=== PATIENT | female | born 1935 | race Caucasian/White ===

== ENCOUNTER 2017-02-07 23:14 | Observation (INO) ==
[2017-02-07] MEDS ORDERED: Lidocaine 1% 20 ML MDV INFILT ONE (23:45)
--- NOTE | 2017-02-07 23:56 | Emergency Department Note ---
Disposition Clinical Impression: TIA (transient ischemic attack) Qualifiers: Transient cerebral ischemia type: unspecified Qualified Code(s): G45.9 - Transient cerebral ischemic attack, unspecified Fall Qualifiers: Encounter type: initial encounter Qualified Code(s): W19.XXXA - Unspecified fall, initial encounter Scalp laceration Qualifiers: Encounter type: initial encounter Qualified Code(s): S01.01XA - Laceration without foreign body of scalp, initial encounter Disposition: Admitted As Inpatient Condition: Fair Time of Disposition: 01:39 General Adult HPI - General Chief complaint: ED Fall Stated complaint: fall, lac to back of head Time Seen by Provider: 02/07/17 23:18 Source: patient, EMS Mode of arrival: EMS Limitations: no limitations Nursing Notes Reviewed: Yes Vital Signs Reviewed: Yes - History of Present Illness HPI Narrative: 81-year-old female presenting to the emergency department with chief complaint of fall and head laceration. Patient states she is not remove her falling. She was down for approximately 2 hours before family came home and found her on the ground lots of bloody napkins around her. Patient does not remember the fall. She does not know what she hit her head on. Patient states she has fallen multiple times in the past year. She states approximately 20 different times. She does not remember any of these episodes she just signed herself on the floor. Patient does have a history of stroke and TIA. According to family during these episodes the patient's left lower extremity becomes extremely weak and she cannot bear weight on it. Patient is back at baseline at this time. Patient has a approximately 5 cm laceration to the posterior scalp. Patient denies any chest pain, dizziness or abdominal pain or nausea. Pain Scale: 0 - Related Data Home Medications Medication Instructions Recorded Confirmed Ergocalciferol (VITAMIN D2) 50,000 unit PO WE 11/21/15 11/21/15 [Vitamin D2 (50,000 UNIT)] Ezetimibe [Zetia] 10 mg PO DAILY 11/21/15 11/21/15 Losartan Potassium [Cozaar] 50 mg PO DAILY 11/21/15 11/21/15 Sertraline [Zoloft] 100 mg PO DAILY 11/21/15 11/21/15 Previous Rx's Medication Instructions Recorded Clopidogrel Bisulfate [Plavix] 75 mg PO DAILY #30 tablet 11/23/15 Sulfamethoxazole/Trimeth DS 1 each PO BID #20 tablet 11/23/15 [Bactrim DS] Allergies Allergy/AdvReac Type Severity Reaction Status Date / Time tetanus and diphtheria Allergy Hives Verified 11/21/15 15:35 toxoids [Tetanus&Diphtheria Toxoid] All systems ED: reviewed and negative except as stated. Constitutional: Denies: fever, chills Eyes: Reports: as per HPI ENT ED: Reports: as per HPI Cardiovascular: Denies: chest pain, palpitations Respiratory: Denies: cough, dyspnea, wheezes Gastrointestinal: Denies: abdominal pain, nausea, vomiting Genitourinary: Reports: as per HPI Musculoskeletal: Reports: as per HPI Integumentary: Reports: abrasion. Denies: rash Neurological: Denies: headache, weakness, numbness Psychiatric: Reports: as per HPI Endocrine: Reports: as per HPI Hematological/Lymphatic: Reports: as per HPI Allergic/Immunologic: Reports: as per HPI Past Medical History - Past Medical History Attestation: Yes The following information was validated with the patient. Medical history: Reports: arthritis, hyperlipidemia, hypertension, osteoporosis , TIA Surgical history: Reports: other Psychiatric history: Reports: anxiety, depression - Social History Smoking Status: Never smoker Smokeless Tobacco Status: No Alcohol use: Reports: none Drug use: Reports: none Physical Exam - General Limitations: no limitations General appearance: alert, in no apparent distress - Head Head exam: normocephalic, other (5 cm laceration noted on the posterior occiput area no active bleeding at this time) - Eye Eye exam: Present: normal appearance, PERRL, EOMI. Absent: scleral icterus, conjunctival injection - ENT ENT exam: normal exam, normal oropharynx - Neck Neck exam: Present: normal inspection, full ROM. Absent: tenderness, meningismus - Chest Chest inspection: Present: normal inspection, symmetric chest wall rise. Absent : tenderness, rash - Respiratory Respiratory exam: Present: normal lung sounds bilaterally. Absent: respiratory distress, wheezes - Cardiovascular Cardiovascular exam: Present: regular rate, normal rhythm, normal heart sounds - Abdominal Exam Abdominal exam: Present: soft, Non-Tender. Absent: distention, guarding, rebound - Extremities Exam Extremities exam: Present: normal inspection, full ROM - Neurological Exam Neurological exam: Present: alert, oriented X3, CN II-XII intact. Absent: motor sensory deficit - Psychiatric Psychiatric exam: Present: normal affect, normal mood - Skin Skin exam: Present: warm, intact Course Course Narrative: 81-year-old female with chief complaint of fall. Patient unsure if she lost consciousness. She has a 5 cm laceration on the occipital part of her scalp. No active bleeding at this time. We will perform a CT of the head and neck along with laceration repair. We will also perform laboratory analysis including CBC, BMP, urinalysis, EKG and troponin. Patient's disposition was likely will be admission. She is alert and oriented 3 in the room with stable vital signs. She agrees with this plan. Family members at bedside. - Reevaluation(s) Reevaluation #1: All patient's lab work and radiographs and imaging have come back within normal limits. Concern for TIA versus syncope at this time. We will admit the patient for further workup. Patient is alert and oriented 3 and remained stable vital signs at this time. She agrees with this plan. I spoke with the hospitalist on-call Dr. Campbell who agrees to accept the patient. Vital Signs Temperature 98.5 F 02/07/17 23:17 Pulse Rate 80 02/07/17 23:17 Respiratory Rate 18 02/07/17 23:17 Blood Pressure 153/111 02/07/17 23:17 O2 Sat by Pulse Oximetry 96 02/07/17 23:17 Temperature 98.4 F 02/08/17 02:06 Pulse Rate 76 02/08/17 01:12 Respiratory Rate 18 02/08/17 02:06 Blood Pressure 138/88 02/08/17 02:06 O2 Sat by Pulse Oximetry 97 02/08/17 01:12 Oxygen Delivery Oxygen Delivery Room Air Procedures - Laceration Laceration 1 Site: scalp Size (cm): 5 Description: linear Depth: simple, single layer Pre-repair: irrigated extensively, deep structures intact Skin layer closed with: ching Medical Decision Making - Lab Data Result diagrams: 02/08/17 00:02 02/08/17 00:02 Lab Results 02/08/17 02/08/17 02/08/17 Range/Units 00:02 00:02 00:02 WBC 12.5 H (4.3-11.1) K/mcL RBC 3.92 (3.82-4.97) M/mcL Hgb 12.9 (11.5-15.4) g/dL Hct 39.5 (35.3-44.9) % MCV 100.8 H (83.0-100.0) fL MCH 32.9 (28.0-33.3) pg MCHC 32.7 (31.6-35.5) g/dL RDW 14.1 (11.5-14.5) % Plt Count 194 (140-400) K/mcL MPV 9.4 (9.4-12.4) fL Immature Gran % 0.6 (0-4) % Seg Neutrophils % 86.3 % Lymphocytes % 7.4 % Monocytes % 4.9 % Eosinophils % 0.6 % Basophils % 0.2 % Neutrophils # 10.8 H (1.6-8.9) K/mcL Lymphocytes # 0.9 (0.6-4.6) K/mcL Monocytes # 0.6 (0.0-1.3) K/mcL Eosinophils # 0.1 (0.0-0.6) K/mcL Basophils # 0.0 (0.0-0.2) K/mcL Sodium 142 (136-145) mEq/L Potassium 3.3 L (3.5-4.5) mEq/L Chloride 108 (98-109) mEq/L Carbon Dioxide 25 (19-29) mEq/L BUN 18 (7-20) mg/dL Creatinine 1.04 (0.57-1.11) mg/dL Est GFR ( Amer) > 60 (> 60) Est GFR (Non-Af Amer) 51 L (> 60) BUN/Creatinine Ratio 17 (6-26) Glucose 169 H (70-99) mg/dL Calculated Osmolality 300 (280-300) Calcium 9.8 (8.6-10.8) mg/dL Creatine Kinase (29-168) Units/L Troponin I 0.02 (0-0.03) ng/mL Urine Color (Yellow) Urine Clarity (Clear) Urine pH (5.0-8.0) pH Units Ur Specific [place] (1.010-1.025) Urine Protein (Neg-Trace) mg/dL Urine Glucose (UA) (Normal) mg/dL Urine Ketones (Negative) mg/dL Urine Blood (Negative) Urine Nitrite (Negative) Urine Bilirubin (Negative) Urine Urobilinogen (Normal) mg/dL Ur Leukocyte Esterase (Negative) Urine Microscopic RBC (0-3) per hpf Urine Microscopic WBC (0-3) per hpf Ur Squamous Epith Cells (None-Few) per lpf Urine Bacteria (None-Few) per hpf Hyaline Casts (None-Few) per lpf 02/08/17 02/08/17 Range/Units 00:02 00:07 WBC (4.3-11.1) K/mcL RBC (3.82-4.97) M/mcL Hgb (11.5-15.4) g/dL Hct (35.3-44.9) % MCV (83.0-100.0) fL MCH (28.0-33.3) pg MCHC (31.6-35.5) g/dL RDW (11.5-14.5) % Plt Count (140-400) K/mcL MPV (9.4-12.4) fL Immature Gran % (0-4) % Seg Neutrophils % % Lymphocytes % % Monocytes % % Eosinophils % % Basophils % % Neutrophils # (1.6-8.9) K/mcL Lymphocytes # (0.6-4.6) K/mcL Monocytes # (0.0-1.3) K/mcL Eosinophils # (0.0-0.6) K/mcL Basophils # (0.0-0.2) K/mcL Sodium (136-145) mEq/L Potassium (3.5-4.5) mEq/L Chloride (98-109) mEq/L Carbon Dioxide (19-29) mEq/L BUN (7-20) mg/dL Creatinine (0.57-1.11) mg/dL Est GFR ( Amer) (> 60) Est GFR (Non-Af Amer) (> 60) BUN/Creatinine Ratio (6-26) Glucose (70-99) mg/dL Calculated Osmolality (280-300) Calcium (8.6-10.8) mg/dL Creatine Kinase 44 (29-168) Units/L Troponin I (0-0.03) ng/mL Urine Color Yellow (Yellow) Urine Clarity Cloudy A (Clear) Urine pH 6.0 (5.0-8.0) pH Units Ur Specific [place] 1.026 H (1.010-1.025) Urine Protein Negative (Neg-Trace) mg/dL Urine Glucose (UA) Normal (Normal) mg/dL Urine Ketones Negative (Negative) mg/dL Urine Blood Negative (Negative) Urine Nitrite Positive A (Negative) Urine Bilirubin Negative (Negative) Urine Urobilinogen Normal (Normal) mg/dL Ur Leukocyte Esterase Negative (Negative) Urine Microscopic RBC 3-5 H (0-3) per hpf Urine Microscopic WBC 3-5 H (0-3) per hpf Ur Squamous Epith Cells Moderate H (None-Few) per lpf Urine Bacteria Many H (None-Few) per hpf Hyaline Casts None Seen (None-Few) per lpf - EKG Data EKG #1 EKG attestation: Yes I reviewed and interpreted this EKG. EKG results narrative: Uncertain regular rhythm. Left axis deviation. 71 bpm. Left bundle branch block. QRS 143, QTc 474. Compared to previous EKG completed on 11/22/2015 no significant changes noted. No ST segment elevation or acute ischemia noted. Attestation Statement - Attestation Attestation: I examined this patient and my medical decision-making was reviewed with the Resident Physician. I agree with the documented findings, disposition and treatment plan as described except to the extent set forth below. Recurrent episodes of what sounds like TIA that leads to fall. Today had LOC, was on the floor for 1-2 hours, unclear how long she was unconscious. Neurologically normal now. Scalp lac repaired by Dr. Negron, I was present and available t/o the procedure. LBBB on EKG. Labs/CT unremarkable other than nitrite positive urine without other evidence of UTI on UA - will notify hospitalist. Agree with admission.
[2017-02-08 00:07] LABS: Basophils % 0.2 %; Eosinophils # 0.1 K/mcL (0.0-0.6); Eosinophils % 0.6 %; Hematocrit 39.5 % (35.3-44.9); Hemoglobin 12.9 g/dL (11.5-15.4); Immature Granulocytes % 0.6 % (0-4); Lymphocytes # 0.9 K/mcL (0.6-4.6); Lymphocytes % 7.4 %; Mean Corpuscular HGB Conc 32.7 g/dL (31.6-35.5); Mean Corpuscular Hemoglobin 32.9 pg (28.0-33.3); Mean Corpuscular Volume 100.8 fL (83.0-100.0); Mean Platelet Volume 9.4 fL (9.4-12.4); Monocytes # 0.6 K/mcL (0.0-1.3); Monocytes % 4.9 %; Neutrophils # 10.8 K/mcL (1.6-8.9); Platelet Count 194 K/mcL (140-400); Red Blood Count 3.92 M/mcL (3.82-4.97); Red Cell Distribution Width 14.1 % (11.5-14.5); Segmented Neutrophils % 86.3 %
[2017-02-08 00:19] LABS: Bilirubin,Urine Negative (Negative); Blood,Urine Negative (Negative); Clarity,Urine Cloudy (Clear); Color,Urine Yellow (Yellow); Glucose,Urine (UA) Normal (Normal); Ketones,Urine Negative (Negative); Leukocyte Esterase,Urine Negative (Negative); Nitrite,Urine Positive (Negative); Protein,Urine Negative (Neg-Trace); Specific Gravity,Urine 1.026 (1.010-1.025); Urobilinogen,Urine Normal (Normal)
[2017-02-08 00:19] LABS: BUN/Creatinine Ratio 17 (6-26); Blood Urea Nitrogen 18 mg/dL (7-20); Calcium 9.8 mg/dL (8.6-10.8); Carbon Dioxide 25 mEq/L (19-29); Chloride 108 mEq/L (98-109); Glucose 169 mg/dL (70-99); Osmolality,Calculated 300 (280-300); Potassium 3.3 mEq/L (3.5-4.5); Sodium 142 mEq/L (136-145); eGFR For African Americans > 60 (> 60); eGFR For Non-African Americans 51 (> 60)
[2017-02-08 00:21] LABS: Bacteria,Urine Many per hpf (None-Few); Hyaline Casts,Urine None Seen per lpf (None-Few); Squamous Epithelial Cell,Urine Moderate per lpf (None-Few)
[2017-02-08] MEDS ORDERED: *HR* Promethazine 25 MG/ML VIAL IVP PRN (01:47)
[2017-02-08] MEDS ORDERED: Naloxone 0.4 MG/ML INJ IVP PRN (01:47)
[2017-02-08] MEDS ORDERED: Ondansetron 4 MG/2 ML VIAL IVP PRN (01:47)
[2017-02-08] MEDS ORDERED: 0.9 % Sodium Chloride 1,000 ML IVC SCH (02:00)
[2017-02-08] MEDS: cefTRIAXone 1,000 MG in Water for inj. (sterile) 10 ML IVP SCH (02:17)
--- NOTE | 2017-02-08 03:30 | Internal Med History&Physical ---
Date of Encounter: 02/08/17 Time of Encounter: 03:00 Assessment and Plan (1) Syncope Current visit: Yes Status: Acute admit the pt into Tele Concerned about her multiple recurrent syncopal episodes definitely need to r/o any arrhythmias vs ACS will put her on flask maker check serial trop Reviewed EKG by myself - SR with VR 71, Left bundle branch block, No ST segment elevation / depression, no acute ischemia changes noticed Also concerned for ortho static hypotension check ortho stat vitals daily PT / OT eval IV fluids 2D Echo and Carotid doppler in AM reviewed CT of head and CT of spine - Acute maxiallary sinusitis noticed.. no acute intra cranial abnormality noticed Qualifiers: Qualified Code(s): R55 - Syncope and collapse (2) SIRS (systemic inflammatory response syndrome) Current visit: Yes Status: Acute She does meet SIRS criteria with elevated WBC, source of inf as UTI and Sinusitis started her on empirical abx Rocephin (3) Hypertension Current visit: No Status: Chronic stable with home meds Qualifiers: Hypertension type: essential hypertension Qualified Code(s): I10 - Essential (primary) hypertension (4) Urinary tract infection Current visit: No Status: Acute UA - showed Nitrite +ve, many bacteria started on empirical abx Rocephin Qualifiers: Urinary tract infection type: acute cystitis Hematuria presence: without hematuria Qualified Code(s): N30.00 - Acute cystitis without hematuria (5) Fall Current visit: Yes Status: Acute PT / OT eval Qualifiers: Encounter type: initial encounter Qualified Code(s): W19.XXXA - Unspecified fall, initial encounter (6) Scalp laceration Current visit: Yes Status: Acute Qualifiers: Encounter type: initial encounter Qualified Code(s): S01.01XA - Laceration without foreign body of scalp, initial encounter (7) Maxillary sinusitis, acute Current visit: Yes Status: Acute CT of head showed sinusitis started her on empirical abx Qualifiers: Qualified Code(s): J01.00 - Acute maxillary sinusitis, unspecified Internal Medicine - H&P: HPI Chief complaint: Syncope Admitted From: Emergency Dept Plans for Post Hospital Care: Home History of present illness: Ms. Schilling is a 81 year old female with known PMH of HTN, TIA on Plavix anti platelet medication presented to the emergency department with chief complaint of fall and head laceration. Patient states she did not remember her falling. She was down for approximately 2 hours before family came home and found her on the ground lots of bloody napkins around her. Patient states she has fallen multiple times in the past few months. She states approximately 20 different times. Each episodes lasts for a minute or two. Some time she does feel light headedness before she passes out. pt denied any CP / SOB / Palpitations. She denied any seizure activity. Patient has a approximately 5 cm laceration to the posterior scalp. Past Med Surg Social Fam HX - Past Medical History Medical history: arthritis, hyperlipidemia, hypertension, osteoporosis, TIA Psychiatric history: anxiety, depression - Past Surgical History Surgical History: cholecystectomy, other - Social History Smoking Status: Never smoker Smokeless Tobacco Status: No Alcohol use: none Drug use: none - Family History Brother Living Status: Hx Family Cardiac Disorders: Yes Hx Family Neurologic Disorders: Yes (Stroke at age 60) Internal Medicine - H&P: Meds Ergocalciferol (VITAMIN D2) [Vitamin D2 (50,000 UNIT)] 50,000 unit PO WE [History] Ezetimibe [Zetia] 10 mg PO DAILY 11/21/15 [History] Losartan Potassium [Cozaar] 50 mg PO DAILY 11/21/15 [History] Sertraline [Zoloft] 100 mg PO DAILY 11/21/15 [History] Clopidogrel Bisulfate [Plavix] 75 mg PO DAILY #30 tablet 11/23/15 [Rx] 3 Allergy/AdvReac Type Severity Reaction Status Date / Time tetanus and diphtheria Allergy Hives Verified 11/21/15 15:35 toxoids [Tetanus&Diphtheria Toxoid] All Systems PM: A 10-system review of systems was performed and is negative for pertinent findings except as documented above in the HPI. Review of systems: All the systems are reviewed everything is benign except the systems and symptoms I mentioned in the history of present illness - Constitutional Vitals: Temp Pulse Resp BP Pulse Ox 98.2 F 90 14 154/69 96 02/08/17 02:47 02/08/17 02:47 02/08/17 02:47 02/08/17 02:47 02/08/17 02:47 General appearance: Present: A&O X 3, no acute distress, answers questions appropriately - Head Additional comments: 5cm size laceration over posterior scalp with ching on - Neck Neck exam general surgery: Present: supple - Respiratory Respiratory exam: Present: decreased breath sounds. Absent: rales, respiratory distress, rhonchi, wheezes - Cardiovascular Cardiovascular exam: Present: RRR, +S1, +S2. Absent: tachycardia - GI/Abdominal GI/Abdominal exam: Present: normal bowel sounds, soft. Absent: rebound, rigid, tenderness - Extremities Exam Extremities exam: Absent: calf tenderness, pedal edema, tenderness - Back Exam Back exam: Absent: CVA tenderness (L), CVA tenderness (R) - Neurological Exam Neurological exam: Present: alert, CN II-XII intact, oriented X3, no focal deficits - Psychiatric Psychiatric exam: Present: normal affect, normal mood - Skin Skin exam: Absent: rash Internal Med - H&P Results - Labs CBC & Chem 7: 02/08/17 00:02 02/08/17 00:02 - Impressions ITS Impressions Cervical Spine CT 02/08/17 23:29 IMPRESSION: No acute abnormality of the cervical spine. Moderate degenerative disc disease D/ / Jr Lincoln MD / Jr Lincoln MD Interpreting Provider: Jr Lincoln MD Head CT 02/08/17 23:29 IMPRESSION: No acute intracranial abnormality. Right posterosuperior scalp soft tissue swelling and defect with associated skin ching. Moderate amount of fluid within the left maxillary sinus. Correlation for acute sinusitis is recommended. D/ / Myra Arriaga Cha, MD / Myra Arriaga Cha, MD Interpreting Provider: Myra Arriaga Cha, MD
[2017-02-08 04:39] LABS: Basophils % 0.3 %; Eosinophils # 0.1 K/mcL (0.0-0.6); Eosinophils % 0.9 %; Hematocrit 36.3 % (35.3-44.9); Hemoglobin 11.8 g/dL (11.5-15.4); Immature Granulocytes % 0.3 % (0-4); Lymphocytes # 1.4 K/mcL (0.6-4.6); Lymphocytes % 11.7 %; Mean Corpuscular HGB Conc 32.5 g/dL (31.6-35.5); Mean Corpuscular Hemoglobin 33.1 pg (28.0-33.3); Mean Corpuscular Volume 101.7 fL (83.0-100.0); Mean Platelet Volume 9.8 fL (9.4-12.4); Monocytes # 0.9 K/mcL (0.0-1.3); Monocytes % 7.5 %; Neutrophils # 9.7 K/mcL (1.6-8.9); Platelet Count 171 K/mcL (140-400); Red Blood Count 3.57 M/mcL (3.82-4.97); Segmented Neutrophils % 79.3 %
[2017-02-08 04:59] LABS: BUN/Creatinine Ratio 18 (6-26); Blood Urea Nitrogen 16 mg/dL (7-20); Calcium 9.1 mg/dL (8.6-10.8); Carbon Dioxide 23 mEq/L (19-29); Chloride 111 mEq/L (98-109); Cholesterol 178 mg/dL (< 200); Glucose 100 mg/dL (70-99); HDL Cholesterol 44 mg/dL (40-59); LDL Cholesterol,Calculated 113 mg/dL (0-99); Magnesium 2.1 mg/dL (1.6-2.6); Osmolality,Calculated 295 (280-300); Potassium 3.5 mEq/L (3.5-4.5); Sodium 142 mEq/L (136-145); Triglycerides 105 mg/dL (< 150); eGFR For African Americans > 60 (> 60); eGFR For Non-African Americans 60 (> 60)
[2017-02-08] MEDS: *HR* Enoxaparin 40 MG/0.4 ML SYRINGE SQ SCH (05:45)
[2017-02-08] MEDS: Acetaminophen 325 MG TABLET PO PRN ×2 (11:42→19:39)
[2017-02-08] MEDS: ZETIA 10MG PO SCH (13:23)
--- NOTE | 2017-02-08 14:24 | Event Note ---
Date of Encounter: 02/08/17 Time of Encounter: 08:45 Patient complains of headache near the site of her scalp injury. Otherwise doing much better overall although she feels weak. Denies any palpitations. Patient's orthostatic blood pressure was positive for orthostatic hypotension. This could be causing her episodes of syncope. Will hydrate patient. Physical therapy recommends placement to skilled rehabilitation. Social work consultation.
[2017-02-08] MEDS ORDERED: D5% in 0.45% NACL 1,000 ML IVC SCH (14:30)
[2017-02-09] MEDS: *HR* Enoxaparin 40 MG/0.4 ML SYRINGE SQ SCH (07:57)
[2017-02-09] MEDS: cefTRIAXone 1,000 MG in Water for inj. (sterile) 10 ML IVP SCH (07:59)
[2017-02-09] MEDS: ZETIA 10MG PO SCH (08:18)
[2017-02-09] MEDS: Acetaminophen 325 MG TABLET PO PRN ×2 (08:41→17:49)
--- NOTE | 2017-02-09 10:34 | Internal Med Progress Note ---
Date of Encounter: 02/09/17 Time of Encounter: 08:00 - Assessment and plan (1) Orthostatic syncope Current Visit: Yes Status: Acute Assessment and plan: Patient was positive for orthostatic hypotension based on her orthostatic blood pressure checks yesterday. She denies any dizziness while lying down. Compression stockings have been ordered. Patient is only on losartan for hypertension. Her blood pressure has been elevated and we are unable to take her off antihypertensives at this time. Physical therapy evaluation has been done. They recommended placement to skilled rehabilitation. (2) Hypertension Current Visit: Yes Status: Chronic Assessment and plan: Blood pressure is elevated but patient also has orthostatic hypotension. Will continue Cozaar for now. Qualifiers: Hypertension type: essential hypertension Qualified Code(s): I10 - Essential (primary) hypertension (3) Maxillary sinusitis, acute Current Visit: Yes Status: Acute Assessment and plan: Continue Rocephin Qualifiers: Qualified Code(s): J01.00 - Acute maxillary sinusitis, unspecified (4) Scalp laceration Current Visit: Yes Status: Acute Assessment and plan: Status post ching in the ER. Healing well Qualifiers: Encounter type: initial encounter Qualified Code(s): S01.01XA - Laceration without foreign body of scalp, initial encounter (5) SIRS (systemic inflammatory response syndrome) Current Visit: Yes Status: Resolved Assessment and plan: Improved. Heart rate is normal. No fever. (6) Urinary tract infection Current Visit: Yes Status: Acute Assessment and plan: Possible UTI. Urinalysis showed WBC and nitrite positive but had many squamous epithelial cells. Therefore not a good sample and has not been cultured. Will repeat urinalysis. Qualifiers: Urinary tract infection type: acute cystitis Hematuria presence: without hematuria Qualified Code(s): N30.00 - Acute cystitis without hematuria (7) Fall Current Visit: Yes Status: Acute Assessment and plan: Recurrent falls. Most likely due to orthostatic hypotension. Physical therapy recommends placement to skilled rehabilitation social insurance administrator has been consulted to make arrangements for this. Qualifiers: Encounter type: initial encounter Qualified Code(s): W19.XXXA - Unspecified fall, initial encounter - Subjective Interval history: Patient is currently awake and alert. She apparently became very confused last night and was pulling out her intravenous catheter. She has a one-to-one sitter at bedside at this time. She seems more oriented now and did recognize me from yesterday. She denies any headache at this time besides being back at the site of her sutures on her scalp. No nausea or vomiting. No shortness of breath or chest pain. - Constitutional Vitals: Temp Pulse Resp BP Pulse Ox 98.0 F 77 15 155/83 93 02/09/17 10:27 02/09/17 10:27 02/09/17 10:27 02/09/17 10:27 02/09/17 10:27 General appearance: Present: A&O X 3, no acute distress, answers questions appropriately - Neck Neck exam general surgery: Present: supple, trachea midline. Absent: lymphadenopathy - Respiratory Respiratory exam: Present: CTAB. Absent: accessory muscle use, rales, rhonchi, wheezes - Cardiovascular Cardiovascular exam: Present: RRR, +S1, +S2. Absent: diastolic murmur, gallop, rubs, systolic murmur - GI/Abdominal GI/Abdominal exam: Present: normal bowel sounds, soft, no peritoneal signs. Absent: distended, tenderness - Extremities Exam Extremities exam: Present: warm, radial pulses palpable and symmetrical. Absent : calf tenderness, cyanotic, pedal edema - Neurological Exam Neurological exam: Present: CN II-XII intact, oriented X3, no focal deficits. Absent: facial droop, speech deficit - Skin Skin exam: Present: dry, intact Internal Medicine: Result - Labs CBC & Chem 7: 02/08/17 04:13 02/08/17 04:13 Labs: Cardiac Enzymes 02/08/17 Range/Units 10:22 Troponin I 0.03 (0-0.03) ng/mL Consult Discharge Plan - Plan Referrals: Digna Garcia MD [Primary Care Provider] -
[2017-02-09 12:58] LABS: Bilirubin,Urine Negative (Negative); Blood,Urine Negative (Negative); Color,Urine Yellow (Yellow); Glucose,Urine (UA) Normal (Normal); Ketones,Urine Negative (Negative); Leukocyte Esterase,Urine Small (Negative); Nitrite,Urine Negative (Negative); Protein,Urine Negative (Neg-Trace); Specific Gravity,Urine 1.018 (1.010-1.025); Urobilinogen,Urine Normal (Normal)
[2017-02-09 13:01] LABS: Hyaline Casts,Urine None Seen per lpf (None-Few); RBC,Urine 0-3 per hpf (0-3); Squamous Epithelial Cell,Urine Many per lpf (None-Few)
[2017-02-09 13:02] LABS: Clarity,Urine Slightly Hazy (Clear)
[2017-02-09 13:12] LABS: Amorphous Sediment,Urine Few (Few)
[2017-02-09 13:14] LABS: Bacteria,Urine Moderate per hpf (None-Few)
[2017-02-09] MEDS ORDERED: OLANZapine 5 MG TAB.RAPDIS PO PRN (21:00)
[2017-02-10 03:42] LABS: Basophils # 0.1 K/mcL (0.0-0.2); Basophils % 0.7 %; Eosinophils # 0.4 K/mcL (0.0-0.6); Eosinophils % 5.2 %; Hematocrit 36.6 % (35.3-44.9); Hemoglobin 11.9 g/dL (11.5-15.4); Immature Granulocytes % 0.4 % (0-4); Lymphocytes # 1.5 K/mcL (0.6-4.6); Lymphocytes % 17.2 %; Mean Corpuscular HGB Conc 32.5 g/dL (31.6-35.5); Mean Corpuscular Hemoglobin 32.5 pg (28.0-33.3); Mean Platelet Volume 9.9 fL (9.4-12.4); Monocytes # 0.7 K/mcL (0.0-1.3); Monocytes % 7.8 %; Neutrophils # 5.9 K/mcL (1.6-8.9); Platelet Count 176 K/mcL (140-400); Red Blood Count 3.66 M/mcL (3.82-4.97); Red Cell Distribution Width 13.9 % (11.5-14.5); Segmented Neutrophils % 68.7 %
[2017-02-10 03:53] LABS: BUN/Creatinine Ratio 14 (6-26); Blood Urea Nitrogen 12 mg/dL (7-20); Carbon Dioxide 25 mEq/L (19-29); Chloride 112 mEq/L (98-109); Glucose 99 mg/dL (70-99); Osmolality,Calculated 298 (280-300); Potassium 3.4 mEq/L (3.5-4.5); Sodium 144 mEq/L (136-145); eGFR For African Americans > 60 (> 60); eGFR For Non-African Americans > 60 (> 60)
[2017-02-10] MEDS: *HR* Enoxaparin 40 MG/0.4 ML SYRINGE SQ SCH (05:59)
[2017-02-10] MEDS: cefTRIAXone 1,000 MG in Water for inj. (sterile) 10 ML IVP SCH (08:35)
[2017-02-10] MEDS: ZETIA 10MG PO SCH (08:37)
[2017-02-10] MEDS: Acetaminophen 325 MG TABLET PO PRN (08:39)
--- NOTE | 2017-02-10 14:26 | Internal Med Progress Note ---
Date of Encounter: 02/10/17 Time of Encounter: 09:00 - Assessment and plan (1) Orthostatic syncope Current Visit: Yes Status: Acute Assessment and plan: Patient has been placed on compression stockings but has not been wearing them. If remains orthostatic, will start low-dose fludrocortisone. However patient does have increased risk of worsening supine hypertension. Will watch blood pressure closely. Moderate risk for complications. 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 (2) Hypertension Current Visit: Yes Status: Chronic Assessment and plan: Better controlled today. On Cozaar Qualifiers: Hypertension type: essential hypertension Qualified Code(s): I10 - Essential (primary) hypertension (3) Maxillary sinusitis, acute Current Visit: Yes Status: Acute Assessment and plan: Was treated with ceftriaxone. We will transition to cephalexin twice a day for 7 days Qualifiers: Qualified Code(s): J01.00 - Acute maxillary sinusitis, unspecified (4) Scalp laceration Current Visit: Yes Status: Acute Qualifiers: Encounter type: initial encounter Qualified Code(s): S01.01XA - Laceration without foreign body of scalp, initial encounter (5) SIRS (systemic inflammatory response syndrome) Current Visit: Yes Status: Resolved (6) Urinary tract infection Current Visit: Yes Status: Ruled-out Assessment and plan: Repeat urinalysis done and patient has 3-5 white blood cells with many squamous epithelial cells. Does not appear to be having UTI. Culture negative. Patient will however be on cephalexin for sinusitis. Qualifiers: Urinary tract infection type: acute cystitis Hematuria presence: without hematuria Qualified Code(s): N30.00 - Acute cystitis without hematuria (7) Fall Current Visit: Yes Status: Acute Assessment and plan: Evaluated by physical therapy. Recommended placement to skilled rehabilitation. Recurrent falls Due to orthostatic hypotension. Qualifiers: Encounter type: initial encounter Qualified Code(s): W19.XXXA - Unspecified fall, initial encounter - Subjective Interval history: 81-year-old female patient in observation the hospital after presenting with episodes of recurrent falls and syncope. Has orthostatic syncope. However only on one medication for high blood pressure and has been persistently hypertensive. PTOT recommended placement to skilled rehabilitation. Scalp laceration has been stapled in the ER. Doing better overall. Patient is feeling better this morning. Denies any headache or nausea or vomiting at this time. No chest pain. No fever or chills overnight. No dizziness when lying down in bed. - Constitutional Vitals: Temp Pulse Resp BP Pulse Ox 98.5 F 71 14 132/63 96 02/10/17 11:26 02/10/17 11:26 02/10/17 06:32 02/10/17 11:26 02/10/17 11:26 General appearance: Present: A&O X 3, no acute distress, answers questions appropriately - Neck Neck exam general surgery: Present: supple, trachea midline. Absent: lymphadenopathy - Respiratory Respiratory exam: Present: CTAB. Absent: accessory muscle use, rales, rhonchi, wheezes - Cardiovascular Cardiovascular exam: Present: RRR, +S1, +S2. Absent: diastolic murmur, gallop, rubs, systolic murmur - GI/Abdominal GI/Abdominal exam: Present: normal bowel sounds, soft, no peritoneal signs. Absent: distended, tenderness - Extremities Exam Extremities exam: Present: warm, radial pulses palpable and symmetrical. Absent : calf tenderness, cyanotic, pedal edema - Neurological Exam Neurological exam: Present: CN II-XII intact, oriented X3, no focal deficits. Absent: facial droop, speech deficit - Skin Skin exam: Present: dry, intact Internal Medicine: Result - Labs CBC & Chem 7: 02/10/17 03:08 02/10/17 03:08 Labs: Short CBC 02/10/17 Range/Units 03:08 WBC 8.5 (4.3-11.1) K/mcL Hgb 11.9 (11.5-15.4) g/dL Hct 36.6 (35.3-44.9) % Plt Count 176 (140-400) K/mcL Neutrophils # 5.9 (1.6-8.9) K/mcL BMP 02/10/17 03:08 Sodium 144 Potassium 3.4 L Chloride 112 H Carbon Dioxide 25 BUN 12 Creatinine 0.83 Glucose 99 Calcium 9.0 - VTE Documentation of Mechanical Device: Graduated compression elastic hosiery Consult Discharge Plan - Plan Referrals: Digna Garcia MD [Primary Care Provider] -
--- NOTE | 2017-02-10 17:03 | Electrocardiograph Report ---
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
[2017-02-10] MEDS ORDERED: cephALEXin 500 MG CAPSULE PO SCH (21:00)
[2017-02-11] MEDS: *HR* Enoxaparin 40 MG/0.4 ML SYRINGE SQ SCH (05:57)
[2017-02-11] MEDS: ZETIA 10MG PO SCH (09:21)
--- NOTE | 2017-02-11 15:08 | Internal Med Progress Note ---
Date of Encounter: 02/11/17 Time of Encounter: 09:35 - Assessment and plan (1) Urinary tract infection Current Visit: Yes Status: Ruled-out Assessment and plan: Repeat urinalysis done and patient has 3-5 white blood cells with many squamous epithelial cells. Does not appear to be having UTI. Original culture negative , repeat urine completed and no culture was indicated. Patient will however be on cephalexin for sinusitis. Qualifiers: Urinary tract infection type: acute cystitis Hematuria presence: without hematuria Qualified Code(s): N30.00 - Acute cystitis without hematuria (2) Fall Current Visit: Yes Status: Acute Assessment and plan: Evaluated by physical therapy. Recommended placement to skilled rehabilitation. Recurrent falls Due to orthostatic hypotension. Qualifiers: Encounter type: initial encounter Qualified Code(s): W19.XXXA - Unspecified fall, initial encounter (3) Scalp laceration Current Visit: Yes Status: Acute Assessment and plan: Status post ching in the ER. Healing well. Watch for signs of infection and sutures out in 7-10 days. Qualifiers: Encounter type: initial encounter Qualified Code(s): S01.01XA - Laceration without foreign body of scalp, initial encounter (4) Maxillary sinusitis, acute Current Visit: Yes Status: Acute Assessment and plan: Was treated with ceftriaxone IV on arrival. We will transition to cephalexin twice a day for [address] No other acute intracranial abnormality. Qualifiers: Qualified Code(s): J01.00 - Acute maxillary sinusitis, unspecified (5) Orthostatic syncope Current Visit: Yes Status: Acute Assessment and plan: If remains orthostatic, will start low-dose fludrocortisone. However patient does have increased risk of worsening supine hypertension. Will watch blood pressure closely. Moderate risk for complications. 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 (6) DVT prophylaxis Current Visit: Yes Status: Acute Assessment and plan: Lovenox subcutaneous. - Time Spent With Patient less than 15 minutes - Subjective Interval history: Patient was seen and assessed the bedside at 9:35 AM. She reports chronic diarrhea for years, there is no change. She denies bloody, dark or tarry stools. She states that she feels better, though she states that at times she still feels somewhat dizzy. She denies headache, neck pain, chest pain or shortness of breath. She denies any abdominal pain, nausea or vomiting. We will continue to monitor, most likely would discharge patient in the morning. - Constitutional Vitals: Temp Pulse Resp BP Pulse Ox 99.2 F 78 16 159/77 97 02/11/17 10:56 02/11/17 10:56 02/11/17 10:56 02/11/17 10:56 02/11/17 10:56 General appearance: Present: cooperative, A&O X 3, no acute distress, answers questions appropriately - Head Head exam: Present: atraumatic, normal inspection, normocephalic - Eye Eye exam: Present: normal appearance, conjuntiva pink, sclera anicteric - Neck Neck exam general surgery: Present: supple, trachea midline. Absent: lymphadenopathy - Respiratory Respiratory exam: Present: CTAB. Absent: accessory muscle use, rales, rhonchi, wheezes - Cardiovascular Cardiovascular exam: Present: RRR, +S1, +S2. Absent: diastolic murmur, gallop, rubs, systolic murmur - GI/Abdominal GI/Abdominal exam: Present: normal bowel sounds, soft. Absent: distended, tenderness - Extremities Exam Extremities exam: Present: warm, radial pulses palpable and symmetrical. Absent : calf tenderness, cyanotic, pedal edema - Neurological Exam Neurological exam: Present: alert, oriented X3, no focal deficits. Absent: facial droop, speech deficit - Skin Skin exam: Present: dry, intact, normal color, warm. Absent: rash Internal Medicine: Result - Labs CBC & Chem 7: 02/10/17 03:08 02/10/17 03:08 - Impressions Impressions Cervical Spine CT 02/08/17 23:29 IMPRESSION: No acute abnormality of the cervical spine. Moderate degenerative disc disease. D/ / 02/08/2017 07:47:28 Jr Lincoln MD / susan Interpreting Provider: Jr Lincoln MD - VTE Documentation of Mechanical Device: Graduated compression elastic hosiery Consult Discharge Plan - Plan Referrals: Digna Garcia MD [Primary Care Provider] -
--- NOTE | 2017-02-11 15:23 | Discharge Summary ---
Date of Encounter: 02/11/17 Time of Encounter: 09:35 - Discharge Diagnosis (1) Urinary tract infection Priority: Secondary Status: Ruled-out Comments: Pt was initially treated with ceftriaxone IV for UTI. Initial urine culture negative for growth. Patient to repeat urine done that showed small amount of LE, 3-5 microscopic white cells, many epithelial cells, moderate bacteria, no repeat culture indicated. Pt has been treated with Cephalexin for 7 days for sinusitis. She denies urinary s/s or pain. Qualifiers: Urinary tract infection type: acute cystitis Hematuria presence: without hematuria Qualified Code(s): N30.00 - Acute cystitis without hematuria (2) Fall Priority: Primary Status: Acute Comments: Patient was admitted for repeated falls at home. Also most likely due to orthostatic syncope. She was evaluated by physical therapy, they recommended placement for skilled rehabilitation. Patient will be transferred to SNF today. Qualifiers: Encounter type: initial encounter Qualified Code(s): W19.XXXA - Unspecified fall, initial encounter (3) Scalp laceration Priority: Secondary Status: Acute Comments: Patient with laceration to head status post fall. [place] were placed in the emergency Department healing well. Watch for signs of infection. Sutures out in 7-10 days. Qualifiers: Encounter type: initial encounter Qualified Code(s): S01.01XA - Laceration without foreign body of scalp, initial encounter (4) Maxillary sinusitis, acute Priority: Secondary Status: Acute Comments: Noted per CT. No other acute intracranial abnormality. She was initially treated with ceftriaxone IV on arrival. She is being discharged with a prescription for cephalexin twice a day for 7 days. Pt has no fever and no facial tenderness, this could be contributory to her syncope and falling. Qualifiers: Qualified Code(s): J01.00 - Acute maxillary sinusitis, unspecified (5) Orthostatic syncope Priority: Secondary Status: Acute Comments: Patient not wearing NELSY hose again this morning. I do not believe they have been placed by nursing yet. Primary nurse and I discussed putting NELSY hose on patient, gentle IV hydration, possibly discharging tomorrow to ECF. Orthostatic vital signs today were positive. Continue fall precautions/bed alarm Continue gentle IV fluid hydration NELSY hose Reevaluate orthostatic vital signs in the morning. (6) DVT prophylaxis Priority: Secondary Status: Acute Comments: Lovenox subcutaneous. - Discharge Medications Prescriptions: Cephalexin [Keflex] 500 mg PO BID #14 capsule Home Medications: Ergocalciferol (VITAMIN D2) [Vitamin D2 (50,000 UNIT)] 50,000 unit PO WE [History] Ezetimibe [Zetia] 10 mg PO DAILY 11/21/15 [History] Losartan Potassium [Cozaar] 50 mg PO DAILY 11/21/15 [History] Sertraline [Zoloft] 100 mg PO DAILY 11/21/15 [History] Clopidogrel Bisulfate [Plavix] 75 mg PO DAILY #30 tablet 11/23/15 [Rx] Cephalexin [Keflex] 500 mg PO BID #14 capsule 02/11/17 [Rx] Allergies/Adverse Reactions: 3 Allergy/AdvReac Type Severity Reaction Status Date / Time tetanus and diphtheria Allergy Hives Verified 11/21/15 15:35 toxoids [Tetanus&Diphtheria Toxoid] Date of admission: 02/08/17 01:42 Primary care physician: Digna Garcia Consults: 02/08/17 01:51 Consult to Occupational Therapy [CONS] Routine Comment: Evaluate, develop and implement POC Reason for Consult: Syncope Consult to Physical Therapy [CONS] Routine Comment: Evaluate, develop and implement POC Reason for Consult: syncope 02/08/17 03:00 Consult to Medical Assistant Secretary [CONS] Routine Reason for SW Consult: possible discharge planning need. Discharging clinician: Josephine Justice Anticipated date of discharge: 02/11/17 - Patient Status Disposition: Transfer SNF Condition: Fair Functional capacity at discharge: wheelchair bound Overall status at discharge: patient is progressing back to baseline - Discharge Instructions Follow Up With: Digna Garcia MD [Primary Care Provider] - - Diet and Activity Activity: as per physical therapy, increase activity as tolerated Diet: advance to your usual diet Hospital course: Ms. Schilling is a 81 year old female with PMH of chronic diarrhea, TIA, hypertension, dyslipidemia, degenerative arthritis. Patient was admitted to the emergency department for her fall and head laceration. Patient states that she fell at home and was down for approximately 2 hours before she was found by family. Patient reports multiple falls in the past few months, approximately 20 different times. Each episode lasts for a minute or 2, positive loss of consciousness with each episode. She reports sometimes she does feel lightheadedness before she passes out but denies any chest pain, shortness of breath, or palpitations. Laceration was sutured in the emergency department. Repeat orthostatic vital signs were positive upon standing. Pt has not been wearing NELSY hose. Discharge delayed to hydrate and make sure NELSY hose are placed. - Time Spent with Patient Total time spent providing and/or coordinating discharge services: Less than 30 minutes - Constitutional Vitals: Temp Pulse Resp BP Pulse Ox 99.2 F 78 16 159/77 97 02/11/17 10:56 02/11/17 10:56 02/11/17 10:56 02/11/17 10:56 02/11/17 10:56 General appearance: Present: cooperative, A&O X 3, pleasant, no acute distress, answers questions appropriately - Head Head exam: Present: atraumatic, normal inspection, normocephalic - Eye Eye exam: Present: normal appearance, conjuntiva pink, sclera anicteric - Neck Neck exam general surgery: Present: supple, trachea midline. Absent: lymphadenopathy, tenderness - Respiratory Respiratory exam: Present: CTAB. Absent: accessory muscle use, chest wall tenderness, rales, rhonchi, wheezes - Cardiovascular Cardiovascular exam: Present: RRR, +S1, +S2. Absent: diastolic murmur, gallop, rubs, systolic murmur - GI/Abdominal GI/Abdominal exam: Present: normal bowel sounds, soft, no peritoneal signs. Absent: distended, hepatomegaly, tenderness - Extremities Exam Extremities exam: Present: normal capillary refill, normal inspection, warm, radial pulses palpable and symmetrical. Absent: calf tenderness, cyanotic, pedal edema - Neurological Exam Neurological exam: Present: alert, oriented X3, no focal deficits. Absent: facial droop, speech deficit - Skin Skin exam: Present: dry, intact, normal color, warm. Absent: rash - VTE Documentation of Mechanical Device: Graduated compression elastic hosiery
[2017-02-11] MEDS: 0.9 % Sodium Chloride 1,000 ML IVC SCH (17:59)
[2017-02-11] MEDS: Lactobacillus 1 EACH CAP.SPRINK PO SCH (21:12)
[2017-02-12] MEDS: *HR* Enoxaparin 40 MG/0.4 ML SYRINGE SQ SCH (06:04)
[2017-02-12] MEDS: Lactobacillus 1 EACH CAP.SPRINK PO SCH ×2 (08:57→20:11)
[2017-02-12] MEDS: 0.9 % Sodium Chloride 1,000 ML IVC SCH (08:58)
[2017-02-12] MEDS: ZETIA 10MG PO SCH (09:03)
[2017-02-12 15:33] LABS: Basophils % 0.5 %; Eosinophils # 0.3 K/mcL (0.0-0.6); Eosinophils % 3.8 %; Hematocrit 36.8 % (35.3-44.9); Hemoglobin 11.8 g/dL (11.5-15.4); Immature Granulocytes % 0.3 % (0-4); Lymphocytes # 1.3 K/mcL (0.6-4.6); Lymphocytes % 17.6 %; Mean Corpuscular HGB Conc 32.1 g/dL (31.6-35.5); Mean Corpuscular Hemoglobin 32.2 pg (28.0-33.3); Mean Corpuscular Volume 100.5 fL (83.0-100.0); Mean Platelet Volume 9.2 fL (9.4-12.4); Monocytes # 0.6 K/mcL (0.0-1.3); Monocytes % 8.3 %; Neutrophils # 5.2 K/mcL (1.6-8.9); Platelet Count 176 K/mcL (140-400); Red Blood Count 3.66 M/mcL (3.82-4.97); Red Cell Distribution Width 14.1 % (11.5-14.5); Segmented Neutrophils % 69.5 %
[2017-02-12 15:50] LABS: Albumin 3.2 g/dL (3.5-5.7); BUN/Creatinine Ratio 14 (6-26); Blood Urea Nitrogen 13 mg/dL (8-23); Calcium 8.7 mg/dL (8.6-10.3); Carbon Dioxide 26 mEq/L (23-29); Chloride 111 mEq/L (98-107); Glucose 110 mg/dL (70-105); Osmolality,Calculated 297 (280-300); Potassium 2.8 mEq/L (3.5-5.1); Sodium 143 mEq/L (136-145); eGFR For African Americans > 60 (> 60); eGFR For Non-African Americans 57 (> 60)
--- NOTE | 2017-02-12 15:58 | Internal Med Progress Note ---
Date of Encounter: 02/12/17 Time of Encounter: 08:25 - Assessment and plan (1) Urinary tract infection Current Visit: Yes Status: Ruled-out Qualifiers: Urinary tract infection type: acute cystitis Hematuria presence: without hematuria Qualified Code(s): N30.00 - Acute cystitis without hematuria (2) Fall Current Visit: Yes Status: Acute Assessment and plan: Evaluated by physical therapy. Recommended placement to skilled rehabilitation. Recurrent falls Due to orthostatic hypotension. Patient remains orthostatic with standing. We will continue fall precautions and bed alarm. Patient reports that she has been getting up independently throughout the night to the bathroom without assistance. We discussed medication management: Nonpertinent for due to the bathroom alone due to fall risk. Verbalized understanding. Qualifiers: Encounter type: initial encounter Qualified Code(s): W19.XXXA - Unspecified fall, initial encounter (3) Scalp laceration Current Visit: Yes Status: Acute Assessment and plan: Status post ching in the ER. Watch for signs of infection and sutures out in 7 -10 days. Well approximated without any drainage or bleeding. Patient denies pain. Qualifiers: Encounter type: initial encounter Qualified Code(s): S01.01XA - Laceration without foreign body of scalp, initial encounter (4) Maxillary sinusitis, acute Current Visit: Yes Status: Acute Assessment and plan: Was treated with ceftriaxone IV on arrival. We will transition to cephalexin twice a day for [address] No other acute intracranial abnormality. Qualifiers: Qualified Code(s): J01.00 - Acute maxillary sinusitis, unspecified (5) Orthostatic syncope Current Visit: Yes Status: Acute Assessment and plan: Patient's orthostatic vital signs have remained positive. This morning upon standing, systolic pressure was in the 60s. Continue NELSY hose, IV hydration. Continue Florinef 0.1 mg by mouth daily. I have added midodrine 2.5 mg daily, first dose now. It can be given up to 3 times daily. Will increase if patient tolerates. I discussed interactions between Florinef and midodrine with pharmacy prior to initiating dose. Patient needs to be seated in an upright position when midodrine is given. Vital signs every 1 hour until 0600. (6) DVT prophylaxis Current Visit: Yes Status: Acute Assessment and plan: Lovenox subcutaneous. - Time Spent With Patient less than 15 minutes - Subjective Interval history: Patient was seen and assessed the bedside at 0825 AM. She states that she feels better, though she states that at times she still feels somewhat dizzy, remains unchanged from prior and admission. She denies headache, neck pain, chest pain or shortness of breath. She denies any abdominal pain, nausea or vomiting. We will continue to monitor, most likely would discharge patient in the morning. Orthostatic vital signs remained positive today, she states that she does not feel poorly when she stands. She reports that she has been getting up through the night going to the bathroom independently, without any assistance from staff and has had no difficulty. Due to patient's continued orthostatic hypotension, I will keep her again continue Marky Pacheco, gentle IV fluid hydration, as well as increasing sodium in her diet and adding midodrine 2.5 mg by mouth daily initially. If patient tolerates it well, it can be given up to 3 times daily. Discussed dosing with pharmacy prior to initiating. 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 - Constitutional Vitals: Temp Pulse Resp BP Pulse Ox 98.0 F 73 16 184/75 97 02/12/17 15:06 02/12/17 15:06 02/12/17 15:06 02/12/17 15:06 02/12/17 15:06 General appearance: Present: cooperative, A&O X 3, pleasant, no acute distress, answers questions appropriately - Head Head exam: Present: atraumatic, normal inspection, normocephalic - Eye Eye exam: Present: normal appearance, conjuntiva pink, sclera anicteric - Neck Neck exam general surgery: Present: supple, trachea midline. Absent: lymphadenopathy - Respiratory Respiratory exam: Present: CTAB. Absent: accessory muscle use, rales, rhonchi, wheezes - Cardiovascular Cardiovascular exam: Present: RRR, +S1, +S2. Absent: diastolic murmur, gallop, rubs, systolic murmur - GI/Abdominal GI/Abdominal exam: Present: normal bowel sounds, soft. Absent: distended, tenderness - Extremities Exam Extremities exam: Present: normal capillary refill, warm, radial pulses palpable and symmetrical. Absent: calf tenderness, cyanotic, pedal edema, tenderness - Neurological Exam Neurological exam: Present: alert, oriented X3, no focal deficits. Absent: facial droop, speech deficit - Skin Skin exam: Present: dry, intact, normal color, warm. Absent: rash Internal Medicine: Result - Labs CBC & Chem 7: 02/12/17 15:27 02/12/17 15:27 Labs: Short CBC 02/12/17 Range/Units 15:27 WBC 7.4 (4.3-11.1) K/mcL Hgb 11.8 (11.5-15.4) g/dL Hct 36.8 (35.3-44.9) % Plt Count 176 (140-400) K/mcL Neutrophils # 5.2 (1.6-8.9) K/mcL BMP 02/12/17 15:27 Sodium 143 Potassium 2.8 L Chloride 111 H Carbon Dioxide 26 BUN 13 Creatinine 0.94 Glucose 110 H Calcium 8.7 Liver Function 02/12/17 Range/Units 15:27 Albumin 3.2 L (3.5-5.7) g/dL - VTE Documentation of Mechanical Device: Graduated compression elastic hosiery Consult Discharge Plan - Plan Referrals: Digna Garcia MD [Primary Care Provider] - Prescriptions: Cephalexin [Keflex] 500 mg PO BID #14 capsule
[2017-02-13] MEDS: 0.9 % Sodium Chloride 1,000 ML IVC SCH (01:35)
[2017-02-13 03:08] LABS: Basophils % 0.5 %; Eosinophils # 0.3 K/mcL (0.0-0.6); Eosinophils % 3.4 %; Hematocrit 35.6 % (35.3-44.9); Hemoglobin 11.7 g/dL (11.5-15.4); Immature Granulocytes % 0.3 % (0-4); Lymphocytes # 1.5 K/mcL (0.6-4.6); Lymphocytes % 17.6 %; Mean Corpuscular HGB Conc 32.9 g/dL (31.6-35.5); Mean Corpuscular Hemoglobin 33.1 pg (28.0-33.3); Mean Corpuscular Volume 100.6 fL (83.0-100.0); Mean Platelet Volume 9.9 fL (9.4-12.4); Monocytes # 0.7 K/mcL (0.0-1.3); Monocytes % 8.3 %; Platelet Count 170 K/mcL (140-400); Red Blood Count 3.54 M/mcL (3.82-4.97); Red Cell Distribution Width 13.9 % (11.5-14.5); Segmented Neutrophils % 69.9 %
[2017-02-13 03:28] LABS: BUN/Creatinine Ratio 13 (6-26); Blood Urea Nitrogen 10 mg/dL (8-23); Calcium 8.6 mg/dL (8.6-10.3); Carbon Dioxide 23 mEq/L (23-29); Chloride 113 mEq/L (98-107); Glucose 102 mg/dL (70-105); Osmolality,Calculated 303 (280-300); Potassium 2.8 mEq/L (3.5-5.1); Sodium 147 mEq/L (136-145); eGFR For African Americans > 60 (> 60); eGFR For Non-African Americans > 60 (> 60)
[2017-02-13] MEDS: *HR* Enoxaparin 40 MG/0.4 ML SYRINGE SQ SCH (05:47)
[2017-02-13] MEDS: ZETIA 10MG PO SCH (11:41)
[2017-02-13] MEDS: Lactobacillus 1 EACH CAP.SPRINK PO SCH ×2 (11:41→19:51)
--- NOTE | 2017-02-13 14:21 | Internal Med Progress Note ---
Date of Encounter: 02/13/17 Time of Encounter: 10:30 - Assessment and plan (1) Urinary tract infection Current Visit: Yes Status: Ruled-out Assessment and plan: Repeat urinalysis done and patient has 3-5 white blood cells with many squamous epithelial cells. Does not appear to be having UTI. Original culture negative , repeat urine completed and no culture was indicated. Patient will however be on cephalexin for sinusitis. Qualifiers: Urinary tract infection type: acute cystitis Hematuria presence: without hematuria Qualified Code(s): N30.00 - Acute cystitis without hematuria (2) Fall Current Visit: Yes Status: Acute Assessment and plan: Evaluated by physical therapy. Recommended placement to skilled rehabilitation. Recurrent falls Due to orthostatic hypotension. Patient remains orthostatic with standing, she is symptomatic and dizzy. She is able to get up to the chair at bedside, she has been unable to ambulate. Recent reported to me that she had been walking to the bathroom, today's nurse reports that she has been trying to get up multiple times at night but staff has been stopping her. We will continue fall precautions and bed alarm. Qualifiers: Encounter type: initial encounter Qualified Code(s): W19.XXXA - Unspecified fall, initial encounter (3) Scalp laceration Current Visit: Yes Status: Acute Assessment and plan: Status post ching in the ER. Watch for signs of infection and sutures out in 7 -10 days. Well approximated without any drainage or bleeding. Patient denies pain. Qualifiers: Encounter type: initial encounter Qualified Code(s): S01.01XA - Laceration without foreign body of scalp, initial encounter (4) Maxillary sinusitis, acute Current Visit: Yes Status: Acute Assessment and plan: Was treated with ceftriaxone IV on arrival for possible UTI. We will transition to cephalexin twice a day for [address] No other acute intracranial abnormality. There is no maxillary or frontal sinus tenderness with palpation. She denies pressure or headache. She denies rhinorrhea or PND. Qualifiers: Qualified Code(s): J01.00 - Acute maxillary sinusitis, unspecified (5) Orthostatic syncope Current Visit: Yes Status: Acute Assessment and plan: Patient's orthostatic vital signs have remained positive. This morning upon standing, systolic pressure was in the 60s. Continue NELSY hose, IV hydration. Continue Florinef 0.1 mg by mouth daily. Midrodine has been discontinued due to ineffectiveness and effect on supine and sitting blood pressure. The patient is still symptomatic with dizziness with standing, vital signs are still positive for orthostatic hypotension. I have consulted cardiology for further recommendations. (6) DVT prophylaxis Current Visit: Yes Status: Acute Assessment and plan: Lovenox subcutaneous. Pt also has NELSY hose. - Time Spent With Patient less than 15 minutes - Subjective Interval history: Patient was seen and assessed the bedside at 1030 AM. Today, patient states that she does not feel well. Apparently, patient has been setting off the bed alarm multiple times at night, not actually getting up to go to the bathroom. She reports that she is still dizzy with standing. Her standing blood pressure remains positive for orthostatic hypotension. She denies headache or blurred vision, she denies chest pain or shortness of breath, no nausea or vomiting diaphoresis, diarrhea or abdominal pain. Cardiology has been consult and to see the patient, she is aware and agrees. dry dip worker is aware of delay to discharge to the [facility]. - Constitutional Vitals: Temp Pulse Resp BP Pulse Ox 97.8 F 70 16 147/93 96 02/13/17 10:59 02/13/17 10:59 02/13/17 10:59 02/13/17 10:59 02/13/17 10:59 General appearance: Present: cooperative, A&O X 3, pleasant, no acute distress, answers questions appropriately - Head Head exam: Present: atraumatic, normal inspection, normocephalic - Eye Eye exam: Present: EOMI, normal appearance, conjuntiva pink, sclera anicteric. Absent: nystagmus - Neck Neck exam general surgery: Present: normal inspection, supple, trachea midline. Absent: lymphadenopathy - Respiratory Respiratory exam: Present: CTAB. Absent: accessory muscle use, chest wall tenderness, rales, respiratory distress, rhonchi, wheezes - Cardiovascular Cardiovascular exam: Present: RRR, +S1, +S2. Absent: bradycardia, diastolic murmur, gallop, rubs, systolic murmur - GI/Abdominal GI/Abdominal exam: Present: normal bowel sounds, soft, no peritoneal signs. Absent: distended, hepatomegaly, tenderness - Extremities Exam Extremities exam: Present: normal capillary refill, normal inspection, warm, radial pulses palpable and symmetrical. Absent: calf tenderness, cyanotic, pedal edema, tenderness - Neurological Exam Neurological exam: Present: alert, oriented X3, no focal deficits. Absent: motor sensory deficit, facial droop, speech deficit - Skin Skin exam: Present: dry, intact, normal color, warm. Absent: rash Internal Medicine: Result - Labs CBC & Chem 7: 02/13/17 02:38 02/13/17 02:38 Labs: Short CBC 02/12/17 02/13/17 Range/Units 15:27 02:38 WBC 7.4 8.6 (4.3-11.1) K/mcL Hgb 11.8 11.7 (11.5-15.4) g/dL Hct 36.8 35.6 (35.3-44.9) % Plt Count 176 170 (140-400) K/mcL Neutrophils # 5.2 6.0 (1.6-8.9) K/mcL BMP 02/12/17 02/13/17 15:27 02:38 Sodium 143 147 H Potassium 2.8 L 2.8 L Chloride 111 H 113 H Carbon Dioxide 26 23 BUN 13 10 Creatinine 0.94 0.79 Glucose 110 H 102 Calcium 8.7 8.6 Liver Function 02/12/17 Range/Units 15:27 Albumin 3.2 L (3.5-5.7) g/dL - VTE Documentation of Mechanical Device: Graduated compression elastic hosiery Consult Discharge Plan - Plan Referrals: Digna Garcia MD [Primary Care Provider] - Prescriptions: Cephalexin [Keflex] 500 mg PO BID #14 capsule
[2017-02-13] MEDS: Acetaminophen 325 MG TABLET PO PRN (15:53)
[2017-02-14] MEDS: *HR* Enoxaparin 40 MG/0.4 ML SYRINGE SQ SCH (05:03)
[2017-02-14 05:41] LABS: BUN/Creatinine Ratio 16 (6-26); Blood Urea Nitrogen 12 mg/dL (8-23); Calcium 8.7 mg/dL (8.6-10.3); Carbon Dioxide 24 mEq/L (23-29); Chloride 112 mEq/L (98-107); Glucose 92 mg/dL (70-105); Osmolality,Calculated 295 (280-300); Sodium 143 mEq/L (136-145); eGFR For African Americans > 60 (> 60); eGFR For Non-African Americans > 60 (> 60)
[2017-02-14 05:56] LABS: Basophils # 0.1 K/mcL (0.0-0.2); Basophils % 0.6 %; Eosinophils # 0.3 K/mcL (0.0-0.6); Eosinophils % 3.3 %; Hematocrit 35.7 % (35.3-44.9); Hemoglobin 11.4 g/dL (11.5-15.4); Immature Granulocytes % 0.4 % (0-4); Lymphocytes # 1.6 K/mcL (0.6-4.6); Lymphocytes % 20.3 %; Mean Corpuscular HGB Conc 31.9 g/dL (31.6-35.5); Mean Corpuscular Hemoglobin 32.1 pg (28.0-33.3); Mean Corpuscular Volume 100.6 fL (83.0-100.0); Mean Platelet Volume 10.3 fL (9.4-12.4); Monocytes # 0.8 K/mcL (0.0-1.3); Monocytes % 9.4 %; Neutrophils # 5.3 K/mcL (1.6-8.9); Platelet Count 198 K/mcL (140-400); Red Blood Count 3.55 M/mcL (3.82-4.97); Red Cell Distribution Width 14.2 % (11.5-14.5)
[2017-02-14] MEDS: Lactobacillus 1 EACH CAP.SPRINK PO SCH ×2 (08:36→21:36)
[2017-02-14] MEDS: ZETIA 10MG PO SCH (08:37)
--- NOTE | 2017-02-14 11:42 | Cardiology Consult Note ---
<Leatha Melgar - Last Filed: 02/14/17 11:37> Date of Encounter: 02/14/17 Time of Encounter: 10:00 Assessment and Plan (1) Syncope Current Visit: Yes Status: Chronic Per cardiology: -Patient presented after syncopal event at home. -reports has been having these episodes for 5 years. -TTE with preserved LVEF, no segmental wall motion abnormalities -No arrythmias noted on telemetry. -Orthostatic hypotension noted. -Suspect syncope may be related to orthostatic hypotension. Qualifiers: Syncope type: unspecified Qualified Code(s): R55 - Syncope and collapse (2) Orthostatic hypotension Current Visit: Yes Status: Acute Per cardiology: -BP typically hypertensive, 140-160s systolic. -Orthostatic vital signs with BPs 60-90s systolic while standing. -On midodrine and florinef. -Reports multiple ceffeniated beverages per day. -ALso reports decreased food intake. -NELSY hose ordered. -Recommend patient maintain healthy diet. -Recommend patient increase water intake. Limit caffeine. -IF not respose to lifestyle changes, can consider referral to neurology. -Anticipate cardiology sign off. Discussion w patient/family: The assessment and plan as outlined above was discussed with the patient and/or family members who expressed understanding and agreement. All questions were answered. Thank you for involving us in the care of your patient. Please call with any questions. Discussed and reviewed with . History of Present Illness Consult date: 02/13/17 Requesting physician: Josephine Justice Consult reason: orthostatin hypotension, syncope Chief complaint: syncope, injury History of present illness: Ms. Schilling is a 81 year old female with a relevant past medical history of HTN, hyperlipidemia, anxiety, GERD, TIA. Patient presented to [facility] after fall at home where patient sustained an injury to her head. Patient states she "passed out" and then fell. Patient denies dizziness or lightheadedness prior to syncopal event. Patient states that her son found her on the floor. Patient reports she has had issues with falling and passing out previously. Patient states this has gone on for greater than 5 years. Patient reports some dizziness with position changes. Patient denies chest pain or shortness of breath. Patient reports that she drinks little water at home. Reports she drinks multiple caffeinated beverages daily. ALso reports she has not been eating well. States she only takes a few bites of her meals at home. Past Med Surg Social Fam HX - Past Medical History Attestation: Yes The following information was validated with the patient. Source: patient, old records reviewed Medical history: arthritis, hyperlipidemia, hypertension, osteoporosis, TIA Psychiatric history: anxiety, depression - Past Surgical History Surgical History: cholecystectomy, other - Social History Smoking Status: Never smoker Smokeless Tobacco Status: No Alcohol use: none Drug use: none - Family History Brother Living Status: Hx Family Cardiac Disorders: Yes Hx Family Neurologic Disorders: Yes (Stroke at age 60) Medications and Allergies Ergocalciferol (VITAMIN D2) [Vitamin D2 (50,000 UNIT)] 50,000 unit PO WE [History] Ezetimibe [Zetia] 10 mg PO DAILY 11/21/15 [History] Losartan Potassium [Cozaar] 50 mg PO DAILY 11/21/15 [History] Sertraline [Zoloft] 100 mg PO DAILY 11/21/15 [History] Clopidogrel Bisulfate [Plavix] 75 mg PO DAILY #30 tablet 11/23/15 [Rx] Cephalexin [Keflex] 500 mg PO BID #14 capsule 02/11/17 [Rx] Amoxicillin/Clavulanate [Augmentin] 875 mg PO BIDWM #7 tablet 02/14/17 [Rx] Fludrocortisone Acetate [Florinef] 0.1 mg PO DAILY #0 tablet 02/14/17 [Rx] Lactobacillus [Culturelle] 1 each PO BID #0 cap.sprink 02/14/17 [Rx] Potassium Chloride 20 meq PO BID tab.er.prt 02/14/17 [Rx] 3 Allergy/AdvReac Type Severity Reaction Status Date / Time tetanus and diphtheria Allergy Hives Verified 11/21/15 15:35 toxoids [Tetanus&Diphtheria Toxoid] All Systems Review: A 10-system review of systems was performed and is negative for pertinent findings except as documented above in the HPI. - Constitutional Constitutional: frequent falls - Cardiovascular Cardiovascular: as per HPI, syncope Physical Examination Vital Signs, Last 4 Hours Temp Pulse Resp BP Pulse Ox 02/14/17 10:42 97.8 F 62 14 102/56 95 General: Conversant, No Apparent Distress HEENT: Normocephaly, Mucus Membranes Moist, Other (John noted to head. ) Neck: No JVD, Normal carotid pulses Cardiac: Reg Rate and Rhythm, Normal S1 and S2, No Murmur Lungs: Normal Breath Sounds, No Wheeze, Rales, Rhonchi Neuro: Alert and responsive, No focal deficits noted Abdomen: Soft, Non-Tender Skin: No rashes noted on visualized skin Musculoskeletal: No Chest Wall Tenderness Extremities: No Clubbing, No Cyanosis, No Edema, Normal Pulses Results 02/14/17 03:57 02/14/17 03:57 Lab Results Active Medications Acetaminophen (Tylenol) 650 mg PO Q6HR PRN PRN Reason: Pain Stop: 08/10/17 11:38 Last Admin: 02/13/17 15:53 Dose: 650 mg Amoxicillin/Clavulanate Potassium (Augmentin) 875 mg PO BIDWM [facility] Stop: 08/12/17 17:01 Last Admin: 02/14/17 08:36 Dose: 875 mg Clopidogrel Bisulfate (Plavix) 75 mg PO DAILY [facility] Stop: 08/10/17 09:01 Last Admin: 02/14/17 08:36 Dose: 75 mg Enoxaparin Sodium (Lovenox) 40 mg SQ 0600 [facility] PRN Reason: Protocol Stop: 08/10/17 06:01 Last Admin: 02/14/17 05:03 Dose: 40 mg Fludrocortisone Acetate (Florinef) 0.1 mg PO DAILY [facility] Stop: 08/12/17 15:01 Last Admin: 02/14/17 08:36 Dose: 0.1 mg Lactobacillus Acidophilus/Rhamnosus (Culturelle) 1 each PO BID [facility] Stop: 08/13/17 21:16 Last Admin: 02/14/17 08:36 Dose: 1 each Losartan Potassium (Cozaar) 50 mg PO DAILY [facility] PRN Reason: Protocol Stop: 08/16/17 09:01 Last Admin: 02/14/17 08:36 Dose: 50 mg Midodrine (Proamatine) 2.5 mg PO 1700 [facility] Stop: 08/14/17 17:01 Last Admin: 02/13/17 15:54 Dose: 2.5 mg Naloxone HCl (Narcan) 0.4 mg IVP Q2MIN PRN PRN Reason: Opioid Reversal Stop: 08/10/17 01:48 Olanzapine (Zyprexa Zydis) 5 mg PO HS PRN PRN Reason: Agitation Stop: 08/11/17 21:01 Ondansetron HCl (Zofran) 4 mg IVP Q8HR PRN PRN Reason: Nausea And Vomiting Stop: 08/10/17 01:48 Pharmacy Profile Note (Patient Taking Own Medication) 1 each PO DAILY [facility] Stop: 08/10/17 09:01 Last Admin: 02/14/17 08:37 Dose: Not Given Potassium Chloride (Potassium Chloride) 20 meq PO BID [facility] Stop: 08/15/17 09:01 Last Admin: 02/14/17 08:36 Dose: 20 meq Promethazine HCl (Phenergan) 12.5 mg IVP Q6HR PRN PRN Reason: Nausea And Vomiting Stop: 08/10/17 01:48 Sertraline HCl (Zoloft) 100 mg PO DAILY [facility] Stop: 08/10/17 09:01 Last Admin: 02/14/17 08:36 Dose: 100 mg Laboratory Tests 02/12/17 02/13/17 02/14/17 15:27 02:38 03:57 Hgb 11.4 L Potassium 2.8 L Creatinine Albumin 3.2 L 02/14/17 03:57 Hgb Potassium 3.0 L Creatinine 0.73 Albumin - Imaging and Cardiology Chest Xray: report reviewed Echo: report reviewed - EKG Interpretation EKG results cardiology: personally reviewed (ECG with SR, HR 71. LBBB.), other ( Telemetry reviewed with average HR previous 12 hours noted to be 74, sinus rhythm. PVCs and PACs noted.) Consult Discharge Plan - Plan Instructions: Cephalexin (By mouth), Amoxicillin/Clavulanate Potassium (By mouth) Additional Instructions: Fall precautions at ECF. Continue medications. INcrease fluid and food intake. PT/OT Referrals: Digna Garcia MD [Primary Care Provider] - Prescriptions: Amoxicillin/Clavulanate [Augmentin] 875 mg PO BIDWM #7 tablet Cephalexin [Keflex] 500 mg PO BID #14 capsule <Crystal Obregon - Last Filed: 02/14/17 17:25> Date of Encounter: 02/14/17 - Attending Attestation I examined this patient and my medical decision-making was reviewed with the HOT MIX OPERATOR. I agree with the documented findings, disposition and treatment plan as described. Ms. Schilling presents with a syncopal event that has been intermittent for the last few years. Noted on admission was orthostatic hypotension. Primary team started florinef. Recommend also supportive care including increased water intake, limiting her caffeine, elevating the head of her bed and using compression stockings. She is also not eating very much. Her son reports a decline cognitively over the past year and significantly over the past few months. I have recommended neurology evaluate the patient for a neurodegenerative disorder. I suspect the presence of orthostatic hypotension as a result of autonomic dysfunction. Can also consider a trial of Northera - will defer to Neurology for further management and recommendations. From a cardiac perspective, her echo demonstrated preserved LV systolic function without wall motion abnormalities. There have been no arrhythmias noted on telemetry and no ischemic ECG findings. We will sign off. Please call with questions. Assessment and Plan Discussion w patient/family: The assessment and plan as outlined above was discussed with the patient and/or family members who expressed understanding and agreement. All questions were answered. Thank you for involving us in the care of your patient. Please call with any questions. History of Present Illness History of present illness: Ms. Schilling is a 81 year old female All Systems Review: A 10-system review of systems was performed and is negative for pertinent findings except as documented above in the HPI. Results 02/14/17 03:57 02/14/17 03:57 Lab Results 02/14/17 02/14/17 03:57 03:57 WBC 8.0 Hgb 11.4 L Hct 35.7 Plt Count 198 Sodium 143 Potassium 3.0 L Chloride 112 H Carbon Dioxide 24 BUN 12 Creatinine 0.73 Glucose 92 Calcium 8.7
--- NOTE | 2017-02-14 11:51 | Discharge Summary ---
Date of Encounter: 02/14/17 Time of Encounter: 08:20 - Discharge Diagnosis (1) Orthostatic syncope Priority: Primary Status: Acute Comments: Patient's orthostatic vital signs have remained positive, pt symptomatic. Treated with NELSY hose, IV hydration. Continue Florinef 0.1 mg by mouth daily. Midrodine has been discontinued due to ineffectiveness and effect on supine and sitting blood pressure. Pt has been drinking caffeinated soda and has had poor po food intake, as well. Fluorinef can be increased by 0.1mg weekly. Dose was started on Tuesday 02/13. Cardiology consulted for recommendations: -Maintain healthy diet -Limit caffeine and increase water intake. -Can refer to neurology if attempted lifestyle changes are ineffective. (2) Urinary tract infection Priority: Secondary Status: Ruled-out Comments: Urine culture negative, repeat urine completed and culture was not indicated. Qualifiers: Qualified Code(s): N30.00 - Acute cystitis without hematuria (3) Fall Priority: Secondary Status: Acute Comments: Evaluated by physical therapy. Recommended placement to skilled rehabilitation. Recurrent falls Due to orthostatic hypotension. Patient remains orthostatic with standing, she is symptomatic and dizzy. She is able to get up to the chair at bedside, she has been unable to ambulate. Recent reported to me that she had been walking to the bathroom, today's nurse reports that she has been trying to get up multiple times at night but staff has been stopping her. We will continue fall precautions and bed alarm. Plan as for orthostatic hypotension. Lifestyle modifications. Qualifiers: Qualified Code(s): W19.XXXA - Unspecified fall, initial encounter (4) Scalp laceration Priority: Secondary Status: Acute Comments: Sutures need to be removed in 3 days. Qualifiers: Qualified Code(s): S01.01XA - Laceration without foreign body of scalp, initial encounter (5) Maxillary sinusitis, acute Priority: Secondary Status: Acute Comments: Cephalexin BID x 7 days. Today is day 4, will send RX for remainder. Qualifiers: Qualified Code(s): J01.00 - Acute maxillary sinusitis, unspecified (6) DVT prophylaxis Priority: Secondary Status: Acute Comments: Lovenox SQ - Discharge Medications Prescriptions: Amoxicillin/Clavulanate [Augmentin] 875 mg PO BIDWM #7 tablet Cephalexin [Keflex] 500 mg PO BID #14 capsule Home Medications: Ergocalciferol (VITAMIN D2) [Vitamin D2 (50,000 UNIT)] 50,000 unit PO WE [History] Ezetimibe [Zetia] 10 mg PO DAILY 11/21/15 [History] Losartan Potassium [Cozaar] 50 mg PO DAILY 11/21/15 [History] Sertraline [Zoloft] 100 mg PO DAILY 11/21/15 [History] Clopidogrel Bisulfate [Plavix] 75 mg PO DAILY #30 tablet 11/23/15 [Rx] Cephalexin [Keflex] 500 mg PO BID #14 capsule 02/11/17 [Rx] Amoxicillin/Clavulanate [Augmentin] 875 mg PO BIDWM #7 tablet 02/14/17 [Rx] Fludrocortisone Acetate [Florinef] 0.1 mg PO DAILY #0 tablet 02/14/17 [Rx] Lactobacillus [Culturelle] 1 each PO BID #0 cap.sprink 02/14/17 [Rx] Potassium Chloride 20 meq PO BID tab.er.prt 02/14/17 [Rx] Allergies/Adverse Reactions: 3 Allergy/AdvReac Type Severity Reaction Status Date / Time tetanus and diphtheria Allergy Hives Verified 11/21/15 15:35 toxoids [Tetanus&Diphtheria Toxoid] Date of admission: 02/08/17 01:42 Primary care physician: Digna Garcia Consults: 02/08/17 01:51 Consult to Occupational Therapy [CONS] Routine Comment: Evaluate, develop and implement POC Reason for Consult: Syncope Consult to Physical Therapy [CONS] Routine Comment: Evaluate, develop and implement POC Reason for Consult: syncope 02/08/17 03:00 Consult to Underwear Hemmer [CONS] Routine Reason for SW Consult: possible discharge planning need. 02/13/17 15:43 Consult to Cardiology [CONS] Routine Comment: Consulting Provider: Cardiology [facility] Reason for Consult: orthostatic syncope/hypotension Time Notified: 15:44 Call Completed: Yes Discharging clinician: Josephine Justice Anticipated date of discharge: 02/14/17 - Patient Status Disposition: Home, Self-Care Condition: Good Functional capacity at discharge: uses cane/walker Overall status at discharge: patient is progressing back to baseline - Discharge Instructions Follow Up With: Garcia,Digna M, MD [Primary Care Provider] - Additional Instructions: Fall precautions at ECF. Continue medications. INcrease fluid and food intake. PT/OT - Diet and Activity Activity: resume usual activities as tolerated Diet: advance to your usual diet Hospital course: Ms. Schilling is a 81 year old female who presented to the ED with fall at home, head lac, and symptomatic orthostatic hypotension. She has been evaluated by cardiology and will be discharged to ECF for rehab. Continue medications and increased po food and fluid intake. Fall precautions at ECF. Labs are stable and WNL. Pt is ready for discharge to ECF. - Time Spent with Patient Total time spent providing and/or coordinating discharge services: Less than 30 minutes - Constitutional Vitals: Temp Pulse Resp BP Pulse Ox 97.8 F 62 14 102/56 95 02/14/17 10:42 02/14/17 10:42 02/14/17 10:42 02/14/17 10:42 02/14/17 10:42 General appearance: Present: cooperative, A&O X 3, pleasant, no acute distress, answers questions appropriately - Head Head exam: Present: atraumatic, normal inspection, normocephalic - Eye Eye exam: Present: normal appearance, conjuntiva pink, sclera anicteric - Neck Neck exam general surgery: Present: supple, trachea midline. Absent: lymphadenopathy, tenderness - Respiratory Respiratory exam: Present: CTAB. Absent: accessory muscle use, decreased breath sounds, rales, respiratory distress, rhonchi, wheezes - Cardiovascular Cardiovascular exam: Present: RRR, +S1, +S2. Absent: diastolic murmur, gallop, rubs, systolic murmur - GI/Abdominal GI/Abdominal exam: Present: normal bowel sounds, soft, no peritoneal signs. Absent: distended, hepatomegaly, tenderness - Extremities Exam Extremities exam: Present: normal capillary refill, warm, radial pulses palpable and symmetrical. Absent: calf tenderness, cyanotic, pedal edema, tenderness - Neurological Exam Neurological exam: Present: alert, oriented X3, no focal deficits. Absent: facial droop, speech deficit - Skin Skin exam: Present: dry, intact, normal color, warm. Absent: rash - VTE Documentation of Mechanical Device: Graduated compression elastic hosiery
--- NOTE | 2017-02-14 14:55 | Neurology - Consult Note ---
Date of Encounter: 02/14/17 Time of Encounter: 14:52 Assessment and Plan (1) Left-sided weakness Current Visit: Yes Status: Acute Patient was observed to have new onset of left sided weakness involving the left arm on top of rather chronic left leg weakness. Will recommend getting an MRI of brain to assess intracranial abnormality especially new CVA. She does have extensive white matter signal changes on CT of head which may indicate presence of [place] disease that can be associated with vascular dementia. (2) Frequent falls Current Visit: Yes Status: Acute This appears related to her orthostatic hypoptension since the falls usually are associated with loss of consciousness after standing up. There is also chronic gait difficulty related to left leg weakness. She does have brisk DTRs, and positive Norris's sign which indicate supratentorial pathology or myelopathy. therefore i would suggest MRI of cervical spine as well. She is already on midodrin. Please continue medical and supportive care History of Present Illness Chief complaint: hypotension, autonomic dysfunction HPI: Ms. Schilling is a 81 year old female with PMH significant for HTN, CKD, secondary hyperparathyroidism, history of falling, hyperlipidemia, physical deconditioning who developed hypotension and neurology was consulted for autonomic dysfunction and frequent falling, also observation that she has been weak to the left side. Patient interviewed in the presence of her son. Patient has been experiencing falling associated with loss of consciousness since the last years. The falling usually occur when she stands up and usually associated with loss of consciousness. She also has been experiencing difficulty walking and started using a cane to walk about 6 months ago. She relates that her leg leg is weak but she has no back pain. She does have some knee pain to the left side. She was found to have hypotension and is currently being treated with midodrin. Son noticed that she has been having left sided weakness since the last few days since admission. CT of head showed no acute intracranial abnormality. Son also mentions that she has some memory loss and forgetfulness. Past Med Surg Social Fam HX - Past Medical History Medical history: arthritis, hyperlipidemia, hypertension, osteoporosis, TIA Psychiatric history: anxiety, depression - Past Surgical History Surgical History: cholecystectomy, other - Social History Smoking Status: Never smoker Smokeless Tobacco Status: No Alcohol use: none Drug use: none - Family History Brother Living Status: Hx Family Cardiac Disorders: Yes Hx Family Neurologic Disorders: Yes (Stroke at age 60) Medications and Allergies Ergocalciferol (VITAMIN D2) [Vitamin D2 (50,000 UNIT)] 50,000 unit PO WE [History] Ezetimibe [Zetia] 10 mg PO DAILY 11/21/15 [History] Losartan Potassium [Cozaar] 50 mg PO DAILY 11/21/15 [History] Sertraline [Zoloft] 100 mg PO DAILY 11/21/15 [History] Clopidogrel Bisulfate [Plavix] 75 mg PO DAILY #30 tablet 11/23/15 [Rx] Cephalexin [Keflex] 500 mg PO BID #14 capsule 02/11/17 [Rx] Amoxicillin/Clavulanate [Augmentin] 875 mg PO BIDWM #7 tablet 02/14/17 [Rx] Fludrocortisone Acetate [Florinef] 0.1 mg PO DAILY #0 tablet 02/14/17 [Rx] Lactobacillus [Culturelle] 1 each PO BID #0 cap.sprink 02/14/17 [Rx] Potassium Chloride 20 meq PO BID tab.er.prt 02/14/17 [Rx] 3 Allergy/AdvReac Type Severity Reaction Status Date / Time tetanus and diphtheria Allergy Hives Verified 11/21/15 15:35 toxoids [Tetanus&Diphtheria Toxoid] All Systems: A 10-system review of systems was performed and is negative for pertinent findings except as documented above in the HPI. Physical Examination - Vital Signs Vital Signs: Initial Vital Signs Temp Pulse Resp BP Pulse Ox 98.5 F 80 18 153/111 96 02/07/17 23:17 02/07/17 23:17 02/07/17 23:17 02/07/17 23:17 02/07/17 23:17 - Constitutional General appearance: comfortable - Neurologic Detailed motor examination: other (Mild left sided hemiparesis noted leg more than arm. ) Motor examination - right side: 5/5: deltoids, biceps, triceps, wrist flexion, wrist extension, chief wheelage clerk, hip flexors, tibialis Anterior, quadriceps, toe extension (EHL), plantarflexion Motor examination - left side: 4/5: deltoids, biceps, triceps, wrist flexion, wrist extension, hip flexors, chief wheelage clerk, quadriceps, tibialis Anterior, toe extension (EHL), plantarflexion Detailed sensory examination: other ([place] intact) Posture: other (None) Reflexes: Biceps: 3+, Triceps: 3+, Brachioradialis: 3+, Patella: 3+, Achilles: 3 + Mental Status Examination: awake, alert, oriented to person, oriented to place, oriented to time, follows commands appropriately, answers questions appropriately, no agnosia, no aphasia, no aproxia Results - Laboratory Findings CBC and BMP: 02/14/17 03:57 02/14/17 03:57 Abnormal lab findings: Abnormal lab results RBC 3.55 M/mcL (3.82-4.97) L 02/14/17 03:57 Hgb 11.4 g/dL (11.5-15.4) L 02/14/17 03:57 MCV 100.6 fL (83.0-100.0) H 02/14/17 03:57 Potassium 3.0 mEq/L (3.5-5.1) L 02/14/17 03:57 Chloride 112 mEq/L (98-107) H 02/14/17 03:57 POC Glucose 166 (58-89) H 02/07/17 23:57 Albumin 3.2 g/dL (3.5-5.7) L 02/12/17 15:27 LDL Cholesterol, Calc 113 mg/dL (0-99) H 02/08/17 04:13 Ur Leukocyte Esterase Small (Negative) H 02/09/17 12:45 Urine Microscopic WBC 3-5 per hpf (0-3) H 02/09/17 12:45 Ur Squamous Epith Cells Many per lpf (None-Few) H 02/09/17 12:45 Urine Bacteria Moderate per hpf (None-Few) H 02/09/17 12:45 Consult Discharge Plan - Plan Instructions: Cephalexin (By mouth), Amoxicillin/Clavulanate Potassium (By mouth) Additional Instructions: Fall precautions at [facility]. Continue medications. INcrease fluid and food intake. PT/OT Referrals: Digna Garcia MD [Primary Care Provider] - Prescriptions: Amoxicillin/Clavulanate [Augmentin] 875 mg PO BIDWM #7 tablet Cephalexin [Keflex] 500 mg PO BID #14 capsule
[2017-02-14 21:08] VITALS: BP 155/70
== END 2017-02-14 22:10 ==
LOC: 3BNU 23:14 → EMEROO 23:14 → SUATTDRO 02-08 01:48 → 3BNU 02-08 02:23
PROVIDERS: ADMIT Internal Medicine Hematology & Oncology; ATTEND Internal Medicine

== ENCOUNTER 2017-10-20 13:08 | Inpatient (IN) ==
--- NOTE | 2017-10-20 13:14 | Emergency Department Note ---
Disposition Clinical Impression: Frequent falls, UTI (urinary tract infection) Intertrochanteric fracture of left hip Qualifiers: Encounter type: initial encounter Fracture type: closed Fracture alignment: nondisplaced Qualified Code(s): S72.145A - Nondisplaced intertrochanteric fracture of left femur, initial encounter for closed fracture Disposition: Admitted As Inpatient General Adult HPI - General Stated complaint: Dislocated Left hip Time Seen by Provider: 10/20/17 13:09 - Related Data Home Medications Medication Instructions Recorded Confirmed Cholecalciferol (Vitamin D3) 50,000 unit PO Q14D 10/20/17 10/20/17 [Vitamin D] Ezetimibe [Ezetimibe] 10 mg PO 199910/20/17 10/20/17 L. Acidophilus/Pectin, Rector 1 cap PO 799,199910/20/17 10/20/17 [Acidophilus Probiotic Capsule] Mirtazapine 7.5 mg PO 199910/20/17 10/20/17 Pantoprazole Sodium [Protonix] [place] [address]/20/17 10/20/17 Potassium Chloride [K-Tab ER] 20 meq PO 799,199910/20/17 10/20/17 Simvastatin [Zocor] 20 mg PO 199910/20/17 10/20/17 Allergies Allergy/AdvReac Type Severity Reaction Status Date / Time tetanus and diphtheria Allergy Hives Verified 10/20/17 14:51 toxoids [Tetanus&Diphtheria Toxoid] Past Medical History - Past Medical History Medical history: Reports: arthritis, hyperlipidemia, hypertension, osteoporosis , TIA, other Surgical history: Reports: cholecystectomy, other (gregory holes placed to evacuate subdural hematomas - done at [facility] 3 weeks ago) Psychiatric history: Reports: anxiety, 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 - Social History Smoking Status: Never smoker Smokeless Tobacco Status: No Alcohol use: Reports: none Drug use: Reports: none Course Vital Signs Temperature 98.8 F 10/20/17 13:14 Pulse Rate 85 10/20/17 13:14 Respiratory Rate 18 10/20/17 13:14 Blood Pressure 152/70 10/20/17 13:14 O2 Sat by Pulse Oximetry 98 10/20/17 13:14 Temperature 98.8 F 10/20/17 13:14 Pulse Rate 85 10/20/17 13:14 Respiratory Rate 18 10/20/17 13:14 Blood Pressure 152/70 10/20/17 13:14 O2 Sat by Pulse Oximetry 98 10/20/17 13:14 Oxygen Delivery Oxygen Delivery Room Air Medical Decision Making - Lab Data Result diagrams: 10/20/17 13:31 10/20/17 13:31 Lab Results 10/20/17 10/20/17 10/20/17 Range/Units 13:25 13:31 13:31 WBC 9.6 (4.3-11.1) K/mcL RBC 3.31 L (3.82-4.97) M/mcL Hgb 11.3 L (11.5-15.4) g/dL Hct 35.2 L (35.3-44.9) % MCV 106.3 H (83.0-100.0) fL MCH 34.1 H (28.0-33.3) pg MCHC 32.1 (31.6-35.5) g/dL RDW 14.4 (11.5-14.5) % Plt Count 138 L (140-400) K/mcL MPV 9.8 (9.4-12.4) fL Immature Gran % 0.8 (0-4) % Seg Neutrophils % 84.0 % Lymphocytes % 7.7 % Monocytes % 6.4 % Eosinophils % 0.9 % Basophils % 0.2 % Neutrophils # 8.0 (1.6-8.9) K/mcL Lymphocytes # 0.7 (0.6-4.6) K/mcL Monocytes # 0.6 (0.0-1.3) K/mcL Eosinophils # 0.1 (0.0-0.6) K/mcL Basophils # 0.0 (0.0-0.2) K/mcL PT (9.4-12.1) Seconds INR Sodium 140 (136-145) mEq/L Potassium 4.1 (3.5-5.1) mEq/L Chloride 109 H (98-107) mEq/L Carbon Dioxide 29 (23-29) mEq/L BUN 18 (8-23) mg/dL Creatinine 0.91 (0.60-1.20) mg/dL Est GFR ( Amer) > 60 (> 60) Est GFR (Non-Af Amer) 59 L (> 60) BUN/Creatinine Ratio 20 (6-26) Glucose 109 H (70-105) mg/dL Calculated Osmolality 292 (280-300) Calcium 9.1 (8.6-10.3) mg/dL Urine Color Yellow (Yellow) Urine Clarity Turbid A (Clear) Urine pH 7.5 (5.0-8.0) pH Units Ur Specific [place] 1.012 (1.010-1.025) Urine Protein 30 H (Neg-Trace) mg/dL Urine Glucose (UA) Normal (Normal) mg/dL Urine Ketones Negative (Negative) mg/dL Urine Blood Negative (Negative) Urine Nitrite Negative (Negative) Urine Bilirubin Negative (Negative) Urine Urobilinogen Normal (Normal) mg/dL Ur Leukocyte Esterase Moderate H (Negative) Urine Microscopic RBC 0-3 (0-3) per hpf Urine Microscopic WBC 50-100 H (0-3) per hpf Ur Squamous Epith Cells Few (None-Few) per lpf Ur Renal Epithelial Cell Few (None-Few) per hpf Urine Bacteria Many H (None-Few) per hpf Hyaline Casts None Seen (None-Few) per lpf Ur Culture Indicated? YES A (NO) 10/20/17 Range/Units 13:31 WBC (4.3-11.1) K/mcL RBC (3.82-4.97) M/mcL Hgb (11.5-15.4) g/dL Hct (35.3-44.9) % MCV (83.0-100.0) fL MCH (28.0-33.3) pg MCHC (31.6-35.5) g/dL RDW (11.5-14.5) % Plt Count (140-400) K/mcL MPV (9.4-12.4) fL Immature Gran % (0-4) % Seg Neutrophils % % Lymphocytes % % Monocytes % % Eosinophils % % Basophils % % Neutrophils # (1.6-8.9) K/mcL Lymphocytes # (0.6-4.6) K/mcL Monocytes # (0.0-1.3) K/mcL Eosinophils # (0.0-0.6) K/mcL Basophils # (0.0-0.2) K/mcL PT 12.7 H (9.4-12.1) Seconds INR 1.1 Sodium (136-145) mEq/L Potassium (3.5-5.1) mEq/L Chloride (98-107) mEq/L Carbon Dioxide (23-29) mEq/L BUN (8-23) mg/dL Creatinine (0.60-1.20) mg/dL Est GFR ( Amer) (> 60) Est GFR (Non-Af Amer) (> 60) BUN/Creatinine Ratio (6-26) Glucose (70-105) mg/dL Calculated Osmolality (280-300) Calcium (8.6-10.3) mg/dL Urine Color (Yellow) Urine Clarity (Clear) Urine pH (5.0-8.0) pH Units Ur Specific [place] (1.010-1.025) Urine Protein (Neg-Trace) mg/dL Urine Glucose (UA) (Normal) mg/dL Urine Ketones (Negative) mg/dL Urine Blood (Negative) Urine Nitrite (Negative) Urine Bilirubin (Negative) Urine Urobilinogen (Normal) mg/dL Ur Leukocyte Esterase (Negative) Urine Microscopic RBC (0-3) per hpf Urine Microscopic WBC (0-3) per hpf Ur Squamous Epith Cells (None-Few) per lpf Ur Renal Epithelial Cell (None-Few) per hpf Urine Bacteria (None-Few) per hpf Hyaline Casts (None-Few) per lpf Ur Culture Indicated? (NO) Attestation Statement - Attestation Attestation: I examined this patient and my medical decision-making was reviewed with the Resident Physician. I agree with the documented findings, disposition and treatment plan as described except to the extent set forth below. Patient presents to the ED after mechanical fall. Patient fell while transferring. Plan on her left buttock. Denies neck or back pain. Denied her head. On examination her left leg is shortened and externally rotated. But pink and warm with DP and PT pulses intact. Plan. Pain control and imaging. Patient with a left trochanteric hip fracture. Also a UTI. Starting antibiotic and will admit. Head CT 10/20/17 13:14 IMPRESSION: 1. Cerebral atrophy and chronic small vessel ischemic changes in the white matter. 2. No acute intracranial hemorrhage or infarct. D/ / Bowen Lazo MD / Bowen Lazo MD Interpreting Provider: Bowen Lazo MD Femur X-Ray 10/20/17 13:17 IMPRESSION: Acute nondisplaced intertrochanteric traumatic fracture of the left proximal femur. D/ / 10/20/2017 14:10:37 Ayesha Dobbins MD / [email or web address] Interpreting Provider: Ayesha Dobbins MD Pelvis X-Ray 10/20/17 13:17 IMPRESSION: Acute traumatic impacted intertrochanteric left proximal femur fracture. D/ / Elvis Funk / Elvis Funk Interpreting Provider: Elvis Funk
[2017-10-20] MEDS ORDERED: 0.9 % Sodium Chloride 1,000 ML IVC ONE (13:15)
[2017-10-20] MEDS ORDERED: *HR* FentaNYL (PF) 100 MCG/2 ML VIAL IVP ONE ×2 (13:15→15:40)
[2017-10-20] MEDS ORDERED: Ondansetron 4 MG/2 ML VIAL IVP ONE (13:15)
--- NOTE | 2017-10-20 13:41 | Emergency Department Note ---
Disposition Clinical Impression: Frequent falls, UTI (urinary tract infection) Intertrochanteric fracture of left hip Qualifiers: Encounter type: initial encounter Fracture type: closed Fracture alignment: nondisplaced Qualified Code(s): S72.145A - Nondisplaced intertrochanteric fracture of left femur, initial encounter for closed fracture Disposition: Admitted As Inpatient Condition: Good Time of Disposition: 14:30 Fall HPI - General Chief Complaint: ED Fall Stated Complaint: Dislocated Left hip Time Seen by Provider: 10/20/17 13:09 Source: EMS Mode of arrival: ambulatory Limitations: no limitations Nursing Notes Reviewed: Yes Vital Signs Reviewed: Yes - History of Present Illness HPI Narrative: 82-year-old female presents to the emergency department after a fall. She was at the nursing facility when she was transferring out of the wheelchair into another one and fell onto the ground had immediate left hip pain. Patient is unable to get up and EMS was called to be transferred to the emergency department. Patient says that she has had hip problems in the past. Patient states that she remembers the entire event fell to the ground did not hit her head. Patient is alert and oriented when we saw her. Patient was not given anything by EMS and she was transported here. Patient otherwise has no complaints - Related Data Home Medications Medication Instructions Recorded Confirmed Cholecalciferol (Vitamin D3) 50,000 unit PO Q14D 10/20/17 10/20/17 [Vitamin D] Ezetimibe [Ezetimibe] 10 mg PO 199910/20/17 10/20/17 L. Acidophilus/Pectin, [place] 1 cap PO 799,199910/20/17 10/20/17 [Acidophilus Probiotic Capsule] Mirtazapine 7.5 mg PO 199910/20/17 10/20/17 Pantoprazole Sodium [Protonix] 40 mg PO 0800 10/20/17 10/20/17 Potassium Chloride [K-Tab ER] 20 meq PO 08,199910/20/17 10/20/17 Simvastatin [Zocor] 20 mg PO 199910/20/17 10/20/17 Allergies Allergy/AdvReac Type Severity Reaction Status Date / Time tetanus and diphtheria Allergy Hives Verified 10/20/17 14:51 toxoids [Tetanus&Diphtheria Toxoid] Review of Systems: 10 point review of systems done and negative unless otherwise stated in the history of present illness. All systems ED: reviewed and negative except as stated. Review of Systems: As Per HPI Constitutional: Denies: fever, chills, weakness, weight change Eyes: Denies: eye pain, eye discharge, vision change ENT ED: Denies: ear pain, throat pain, dental pain, hearing loss, epistaxis, congestion, dysphagia Cardiovascular: Denies: chest pain, palpitations, dyspnea on exertion, edema, syncope Respiratory: Denies: cough, dyspnea, wheezes, hemoptysis, stridor Gastrointestinal: Denies: abdominal pain, nausea, vomiting, diarrhea, constipation, hematemesis, melena, hematochezia Genitourinary: Denies: dysuria, frequency, hematuria, discharge Musculoskeletal: Denies: back pain, neck pain, arthralgia, myalgia Integumentary: Denies: rash, abrasion, lesions Neurological: Denies: headache, weakness, numbness, paresthesias, confusion, abnormal gait, vertigo Psychiatric: Denies: anxiety, depression, suicidal thoughts, homicidal thoughts , auditory hallucinations, visual hallucinations Endocrine: Denies: fatigue Hematological/Lymphatic: Denies: easy bleeding, easy bruising Allergic/Immunologic: Denies: facial swelling, urticaria Fall PMH - Past Medical History Medical history: Reports: arthritis, hyperlipidemia, hypertension, osteoporosis , TIA, other Reports: Recurrent Falls Surgical history: Reports: cholecystectomy, other (gregory holes placed to evacuate subdural hematomas - done at [facility] 3 weeks ago) Psychiatric history: Reports: anxiety, depression STONE BREAKER history: Reports: non-contributory - Social History Smoking Status: Never smoker Alcohol use: Reports: none Drug use: Reports: none Physical Exam - General Limitations: no limitations General appearance: alert, in no apparent distress - Head Head exam: atraumatic, normocephalic, normal inspection - Eye Eye exam: Present: normal appearance, PERRL, EOMI - ENT ENT exam: normal exam, normal oropharynx, mucous membranes moist - Neck Neck exam: Present: normal inspection, full ROM, trachea midline - Chest Chest inspection: Present: normal inspection, symmetric chest wall rise - Respiratory Respiratory exam: Present: normal lung sounds bilaterally. Absent: respiratory distress, wheezes - Cardiovascular Cardiovascular exam: Present: regular rate, normal rhythm, normal heart sounds - Abdominal Exam Abdominal exam: Present: soft, Non-Tender, normal bowel sounds. Absent: tenderness, distention, guarding, rebound, rigidity - Expanded Lower Extremity Exam Hip/Pelvis exam: Present: tenderness (Left-sided), swelling, deformity, internal rotation, pelvis stable. Absent: full ROM Knee exam: Present: normal inspection, full ROM. Absent: tenderness Lower leg exam: Present: normal inspection, full ROM Ankle exam: Present: normal inspection, full ROM Foot/toe exam: Present: normal inspection, full ROM. Absent: tenderness, swelling, tenderness at base of 5th metatarsal Neurovascular/Tendon exam: Present: normal capillary refill. Absent: pulse deficit, motor deficit, sensory deficit, tendon deficit, normal fine/light touch - Back Exam Back exam: Present: normal inspection, full ROM. Absent: tenderness, CVA tenderness (R), CVA tenderness (L) - Neurological Exam Neurological exam: Present: alert, oriented X3 - Skin Skin exam: Present: warm, dry, intact, normal color Course Course Narrative: Patient here after a fall we will get EKG and head CT. We will get basic labs including CBC and BMP. We will also get a pelvis x-ray as well as left femur for signs of any fracture. We will give patient IV fluids, Zofran, fentanyl and place a Hanson catheter. We will also get coags for future surgery. Patient 's okay with this plan. Most likely disposition will be admission - Consultations Consultation #1: Spoke with orthopedic surgeon labor relations representative Dr. Quiroga who said he will see the patient after there is admitted and they will consult on the patient. Time: 14:09 Consultation #2: Spoke with the hospitalist Dr. Jamison who agreed to admit the patient to their service. Time: 14:29 Vital Signs Temperature 98.8 F 10/20/17 13:14 Pulse Rate 85 10/20/17 13:14 Respiratory Rate 18 10/20/17 13:14 Blood Pressure 152/70 10/20/17 13:14 O2 Sat by Pulse Oximetry 98 10/20/17 13:14 Temperature 98.8 F 10/20/17 13:14 Pulse Rate 85 10/20/17 13:14 Respiratory Rate 18 10/20/17 13:14 Blood Pressure 152/70 10/20/17 13:14 O2 Sat by Pulse Oximetry 98 10/20/17 13:14 Oxygen Delivery Oxygen Delivery Room Air Fall - [facility] Narrative Medical decision making narrative: 82-year-old female presenting to the emergency department after a fall. Head CT came back with no acute changes. Patient did have a UTI based on urinalysis treat her with 1 g Rocephin. X-ray of the left hip did show intertrochanteric fracture. Patient did have pulses bilaterally both posterior tibial and pedal. Patient's pain was controlled with fentanyl and given IV fluids and Zofran. Patient is okay with that plan. Spoke with the orthopedist who did say they would see the patient with a consult to admit to the hospitalist service. Patient was admitted in stable condition. Patient had a Hanson placed due to being immobile. Head CT 10/20/17 13:14 IMPRESSION: 1. Cerebral atrophy and chronic small vessel ischemic changes in the white matter. 2. No acute intracranial hemorrhage or infarct. D/ / Bowen Lazo MD / Bowen Lazo MD Interpreting Provider: Bowen Lazo MD Femur X-Ray 10/20/17 13:17 IMPRESSION: Acute nondisplaced intertrochanteric traumatic fracture of the left proximal femur. D/ / 10/20/2017 14:10:37 Ayesha Dobbins MD / susan Interpreting Provider: Ayesha Dobbins MD Pelvis X-Ray 10/20/17 13:17 IMPRESSION: Acute traumatic impacted intertrochanteric left proximal femur fracture. D/ / Elvis Funk / Elvis Funk Interpreting Provider: Elvis Funk - Medical Records Medical records reviewed: Yes I reviewed the patient's medical records. - Lab Data Lab results reviewed: Yes I reviewed the patient's lab results. Result diagrams: 10/20/17 13:31 10/20/17 13:31 Lab Results 10/20/17 10/20/17 10/20/17 Range/Units 13:25 13:31 13:31 WBC 9.6 (4.3-11.1) K/mcL RBC 3.31 L (3.82-4.97) M/mcL Hgb 11.3 L (11.5-15.4) g/dL Hct 35.2 L (35.3-44.9) % MCV 106.3 H (83.0-100.0) fL MCH 34.1 H (28.0-33.3) pg MCHC 32.1 (31.6-35.5) g/dL RDW 14.4 (11.5-14.5) % Plt Count 138 L (140-400) K/mcL MPV 9.8 (9.4-12.4) fL Immature Gran % 0.8 (0-4) % Seg Neutrophils % 84.0 % Lymphocytes % 7.7 % Monocytes % 6.4 % Eosinophils % 0.9 % Basophils % 0.2 % Neutrophils # 8.0 (1.6-8.9) K/mcL Lymphocytes # 0.7 (0.6-4.6) K/mcL Monocytes # 0.6 (0.0-1.3) K/mcL Eosinophils # 0.1 (0.0-0.6) K/mcL Basophils # 0.0 (0.0-0.2) K/mcL PT (9.4-12.1) Seconds INR Sodium 140 (136-145) mEq/L Potassium 4.1 (3.5-5.1) mEq/L Chloride 109 H (98-107) mEq/L Carbon Dioxide 29 (23-29) mEq/L BUN 18 (8-23) mg/dL Creatinine 0.91 (0.60-1.20) mg/dL Est GFR ( Amer) > 60 (> 60) Est GFR (Non-Af Amer) 59 L (> 60) BUN/Creatinine Ratio 20 (6-26) Glucose 109 H (70-105) mg/dL Calculated Osmolality 292 (280-300) Calcium 9.1 (8.6-10.3) mg/dL Urine Color Yellow (Yellow) Urine Clarity Turbid A (Clear) Urine pH 7.5 (5.0-8.0) pH Units Ur Specific [place] 1.012 (1.010-1.025) Urine Protein 30 H (Neg-Trace) mg/dL Urine Glucose (UA) Normal (Normal) mg/dL Urine Ketones Negative (Negative) mg/dL Urine Blood Negative (Negative) Urine Nitrite Negative (Negative) Urine Bilirubin Negative (Negative) Urine Urobilinogen Normal (Normal) mg/dL Ur Leukocyte Esterase Moderate H (Negative) Urine Microscopic RBC 0-3 (0-3) per hpf Urine Microscopic WBC 50-100 H (0-3) per hpf Ur Squamous Epith Cells Few (None-Few) per lpf Ur Renal Epithelial Cell Few (None-Few) per hpf Urine Bacteria Many H (None-Few) per hpf Hyaline Casts None Seen (None-Few) per lpf Ur Culture Indicated? YES A (NO) 10/20/17 Range/Units 13:31 WBC (4.3-11.1) K/mcL RBC (3.82-4.97) M/mcL Hgb (11.5-15.4) g/dL Hct (35.3-44.9) % MCV (83.0-100.0) fL MCH (28.0-33.3) pg MCHC (31.6-35.5) g/dL RDW (11.5-14.5) % Plt Count (140-400) K/mcL MPV (9.4-12.4) fL Immature Gran % (0-4) % Seg Neutrophils % % Lymphocytes % % Monocytes % % Eosinophils % % Basophils % % Neutrophils # (1.6-8.9) K/mcL Lymphocytes # (0.6-4.6) K/mcL Monocytes # (0.0-1.3) K/mcL Eosinophils # (0.0-0.6) K/mcL Basophils # (0.0-0.2) K/mcL PT 12.7 H (9.4-12.1) Seconds INR 1.1 Sodium (136-145) mEq/L Potassium (3.5-5.1) mEq/L Chloride (98-107) mEq/L Carbon Dioxide (23-29) mEq/L BUN (8-23) mg/dL Creatinine (0.60-1.20) mg/dL Est GFR ( Amer) (> 60) Est GFR (Non-Af Amer) (> 60) BUN/Creatinine Ratio (6-26) Glucose (70-105) mg/dL Calculated Osmolality (280-300) Calcium (8.6-10.3) mg/dL Urine Color (Yellow) Urine Clarity (Clear) Urine pH (5.0-8.0) pH Units Ur Specific [place] (1.010-1.025) Urine Protein (Neg-Trace) mg/dL Urine Glucose (UA) (Normal) mg/dL Urine Ketones (Negative) mg/dL Urine Blood (Negative) Urine Nitrite (Negative) Urine Bilirubin (Negative) Urine Urobilinogen (Normal) mg/dL Ur Leukocyte Esterase (Negative) Urine Microscopic RBC (0-3) per hpf Urine Microscopic WBC (0-3) per hpf Ur Squamous Epith Cells (None-Few) per lpf Ur Renal Epithelial Cell (None-Few) per hpf Urine Bacteria (None-Few) per hpf Hyaline Casts (None-Few) per lpf Ur Culture Indicated? (NO) - Radiology Data Radiology results reviewed: Yes I reviewed the patient's radiology results. - EKG Data EKG attestation: Yes I reviewed and interpreted this EKG. EKG results narrative: EKG done at 1319 review by myself and the attending shows sinus rhythm at a rate of 87, OK 177, QRS 129, QTC 529. Patient does have a leftward axis. No acute ST changes no acute T-wave changes. There is a left bundle branch block. No other blocks. No signs of heart strain or hypertrophy. No signs of WPW/ Brugada syndrome. No other signs of ischemia. This EKG is unchanged including the left bundle branch block when compared with old one done 04/21/17
[2017-10-20 13:42] LABS: Bilirubin,Urine Negative (Negative); Blood,Urine Negative (Negative); Clarity,Urine Turbid (Clear); Color,Urine Yellow (Yellow); Glucose,Urine (UA) Normal (Normal); Ketones,Urine Negative (Negative); Leukocyte Esterase,Urine Moderate (Negative); Nitrite,Urine Negative (Negative); PH,Urine 7.5 pH Units (5.0-8.0); Protein,Urine 30 mg/dL (Neg-Trace); Specific Gravity,Urine 1.012 (1.010-1.025); Urobilinogen,Urine Normal (Normal)
[2017-10-20 13:44] LABS: Bacteria,Urine Many per hpf (None-Few); Hyaline Casts,Urine None Seen per lpf (None-Few); WBC,Urine 50-100 per hpf (0-3)
[2017-10-20 13:47] LABS: Basophils % 0.2 %; Eosinophils # 0.1 K/mcL (0.0-0.6); Eosinophils % 0.9 %; Hematocrit 35.2 % (35.3-44.9); Hemoglobin 11.3 g/dL (11.5-15.4); Immature Granulocytes % 0.8 % (0-4); Lymphocytes # 0.7 K/mcL (0.6-4.6); Lymphocytes % 7.7 %; Mean Corpuscular HGB Conc 32.1 g/dL (31.6-35.5); Mean Corpuscular Hemoglobin 34.1 pg (28.0-33.3); Mean Corpuscular Volume 106.3 fL (83.0-100.0); Mean Platelet Volume 9.8 fL (9.4-12.4); Monocytes # 0.6 K/mcL (0.0-1.3); Monocytes % 6.4 %; Platelet Count 138 K/mcL (140-400); Red Blood Count 3.31 M/mcL (3.82-4.97); Red Cell Distribution Width 14.4 % (11.5-14.5)
[2017-10-20 13:58] LABS: RBC,Urine 0-3 per hpf (0-3); Renal Epithelial Cells,Urine Few per hpf (None-Few); Squamous Epithelial Cell,Urine Few per lpf (None-Few)
[2017-10-20 14:02] LABS: BUN/Creatinine Ratio 20 (6-26); Blood Urea Nitrogen 18 mg/dL (8-23); Calcium 9.1 mg/dL (8.6-10.3); Carbon Dioxide 29 mEq/L (23-29); Chloride 109 mEq/L (98-107); Glucose 109 mg/dL (70-105); Osmolality,Calculated 292 (280-300); Potassium 4.1 mEq/L (3.5-5.1); Sodium 140 mEq/L (136-145); eGFR For Non-African Americans 59 (> 60)
[2017-10-20 14:18] LABS: INR 1.1; Prothrombin Time 12.7 Seconds (9.4-12.1)
[2017-10-20] MEDS ORDERED: cefTRIAXone 1,000 MG in Water for inj. (sterile) 20 ML 10 ML IVP ONE (14:23)
--- NOTE | 2017-10-20 14:27 | Orthopedic Consult Note ---
Date of Encounter: 10/20/17 Time of Encounter: 22:20 Assessment and Plan (1) Intertrochanteric fracture of left hip Current Visit: Yes Status: Acute Patient doing well, pain controlled. She has not ambulated on her own for approx 10 months since a brain surgery. She has been working to ambulate with PT at her F, and her fall today was a result of this. XRAYS reviewed by myself and Conservative and surgical options reviewed with patient and her POA. They would like to proceed with surgical intervention for a Left Hip IM nailing. Patient will go for surgery on Friday with . Consent reviewed and signed by POA - her son Charles - [phone]. Treating UTI with Rocephin pre-operatively. Continue with pain management Start foot pumps for DVT prophylaxis. Plan reviewed and discussed with . Qualifiers: Encounter type: initial encounter Fracture type: closed Fracture alignment: nondisplaced Qualified Code(s): S72.145A - Nondisplaced intertrochanteric fracture of left femur, initial encounter for closed fracture History of Present Illness Chief complaint: Fall HPI: Ms. Schilling is a 82 year old female, reported to ED from [facility] status post a fall from her wheelchair. She sustained a Left Hip fracture. She has not ambulated for approx 10 months since she had two brain surgeries per her POA. She has resided at [facility] since those surgeries. She admits to left hip pain, worsen with palpation. She denies N/T or radiation of pain. Left hip: No ecchymosis, abrasions or open wounds. No erythema noted. No warmth, no calf tenderness. ROM limited. Strength limited. NV intact distally. Past Med Surg Social Fam HX - Past Medical History Medical history: arthritis, hyperlipidemia, hypertension, osteoporosis, TIA, other Additional medical history: SUBDURAL HEMATOMA Psychiatric history: anxiety, depression - Past Surgical History Surgical History: cholecystectomy, other (gregory holes placed to evacuate subdural hematomas - done at [facility] 3 weeks ago) Additional surgical history: brain surgery - Social History Smoking Status: Never smoker Smokeless Tobacco Status: No Alcohol use: none Drug use: none - Family History Brother Living Status: Hx Family Cardiac Disorders: Yes Hx Family Neurologic Disorders: Yes (Stroke at age 60) Mother Hx Family Neurologic Disorders: No Medications and Allergies Cholecalciferol (Vitamin D3) [Vitamin D] 50,000 unit PO Q14D 10/20/17 [History] Ezetimibe [Ezetimibe] 10 mg PO 199910/20/17 [History] L. Acidophilus/Pectin, [place] [Acidophilus Probiotic Capsule] 1 cap PO 799, 199910/20/17 [History] Mirtazapine 7.5 mg PO 199910/20/17 [History] Pantoprazole Sodium [Protonix] 40 mg PO 0810/20/17 [History] Potassium Chloride [K-Tab ER] 20 meq PO 799,199910/20/17 [History] Simvastatin [Zocor] 20 mg PO 199910/20/17 [History] 3 Allergy/AdvReac Type Severity Reaction Status Date / Time tetanus and diphtheria Allergy Hives Verified 10/20/17 14:51 toxoids [Tetanus&Diphtheria Toxoid] All Systems Reviewed: The remainder of the systems were reviewed and are negative - Constitutional Constitutional: as per HPI, weakness, no fever(s), no frequent falls - Cardiovascular Cardiovascular: as per HPI - Respiratory Respiratory: as per HPI - Musculoskeletal Musculoskeletal: abnormal gait, limited range of motion, no numbness, no radiating pain into limb, no stiffness, no tingling Physical Exam - Constitutional Vitals: Temp Pulse Resp BP Pulse Ox 98.8 F 85 18 152/70 98 10/20/17 13:14 10/20/17 13:14 10/20/17 13:14 10/20/17 13:14 10/20/17 13:14 General appearance IM: cooperative, A&O X 3, pleasant Results - Labs Result Diagrams: 10/21/17 18:27 10/21/17 01:11 Labs: Abnormal lab results RBC 3.31 M/mcL (3.82-4.97) L 10/20/17 13:31 Hgb 11.3 g/dL (11.5-15.4) L 10/20/17 13:31 Hct 35.2 % (35.3-44.9) L 10/20/17 13:31 MCV 106.3 fL (83.0-100.0) H 10/20/17 13:31 MCH 34.1 pg (28.0-33.3) H 10/20/17 13:31 Plt Count 138 K/mcL (140-400) L 10/20/17 13:31 PT 12.7 Seconds (9.4-12.1) H 10/20/17 13:31 Chloride 109 mEq/L (98-107) H 10/20/17 13:31 Est GFR (Non-Af Amer) 59 (> 60) L 10/20/17 13:31 Glucose 109 mg/dL (70-105) H 10/20/17 13:31 Urine Clarity Turbid (Clear) A 10/20/17 13:25 Urine Protein 30 mg/dL (Neg-Trace) H 10/20/17 13:25 Ur Leukocyte Esterase Moderate (Negative) H 10/20/17 13:25 Urine Microscopic WBC 50-100 per hpf (0-3) H 10/20/17 13:25 Urine Bacteria Many per hpf (None-Few) H 10/20/17 13:25 Ur Culture Indicated? YES (NO) A 10/20/17 13:25 H & H 10/20/17 Range/Units 13:31 Hgb 11.3 L (11.5-15.4) g/dL Hct 35.2 L (35.3-44.9) % All other labs normal. - Diagnostic results Hip x-ray: report reviewed, image reviewed Consult Discharge Plan - Plan Referrals: Digna Garcia MD [Primary Care Provider] -
[2017-10-20] MEDS ORDERED: Ondansetron 4 MG/2 ML VIAL IVP PRN (16:05)
[2017-10-20] MEDS ORDERED: Ibuprofen 400 MG TABLET PO PRN (16:06)
[2017-10-20] MEDS ORDERED: *HR* OxyCODONE Immed Rel 5 MG TABLET PO PRN (16:06)
[2017-10-20] MEDS ORDERED: Naloxone 0.4 MG/ML INJ IVP PRN (16:06)
--- NOTE | 2017-10-20 16:38 | Internal Med History&Physical ---
Date of Encounter: 10/20/17 Time of Encounter: 16:34 Internal Medicine - H&P: HPI Chief complaint: falls, lt hip fracture Admitted From: Long-term Nursing Facility Plans for Post Hospital Care: Transfer Shelter Care History of present illness: Ms. Schilling is a 82 year old female with a PMH of arthritis, hyperlipidemia, hypertension, osteoporosis, TIA, subdural hematoma status post surgery at [facility] and frequent falls. She presents to the ED status post fall this afternoon resulting in left hip fracture. The patient reports that she was transferring out of a wheelchair and fell onto the ground and had immediate hip pain with reduced range of motion. Imaging in the ED revealed an acute nondisplaced intertrochanteric traumatic fracture of the left proximal femur. Patient reports that she is having pain with range of motion and weightbearing. Additionally, she was found to have urinary tract infection with a urinalysis positive for turbid urine, leukocyte esterase and pyuria. She denies any urinary symptoms such as dysuria, flank pain, fevers or chills but admits to urinary frequency and an increase in urinary incontinence. Subsequently she is being medically further evaluation and treatment of a left hip fracture as well as urinary tract infection. Past Med Surg Social Fam HX - Past Medical History Medical history: arthritis, hyperlipidemia, hypertension, osteoporosis, TIA, other Additional medical history: SUBDURAL HEMATOMA Psychiatric history: anxiety, depression - Past Surgical History Surgical History: cholecystectomy, other Additional surgical history: BRAIN SURGERYX2 @ [facility] DUE TO SWELLING/BLEEDING. - Social History Smoking Status: Never smoker Smokeless Tobacco Status: No Alcohol use: none Drug use: none - Family History Brother Living Status: Hx Family Cardiac Disorders: Yes Hx Family Neurologic Disorders: Yes (Stroke at age 60) Mother Hx Family Neurologic Disorders: No Internal Medicine - H&P: Meds Cholecalciferol (Vitamin D3) [Vitamin D] 50,000 unit PO Q14D 10/20/17 [History] Ezetimibe [Ezetimibe] 10 mg PO 199910/20/17 [History] L. Acidophilus/Pectin, [place] [Acidophilus Probiotic Capsule] 1 cap PO 08, 199910/20/17 [History] Mirtazapine 7.5 mg PO 199910/20/17 [History] Pantoprazole Sodium [Protonix] [place] [address]10/20/17 [History] Potassium Chloride [K-Tab ER] 20 meq PO 10/20/17 [History] Simvastatin [Zocor] 20 mg PO 199910/20/17 [History] 3 Allergy/AdvReac Type Severity Reaction Status Date / Time tetanus and diphtheria Allergy Hives Verified 10/20/17 14:51 toxoids [Tetanus&Diphtheria Toxoid] All Systems PM: A 10-system review of systems was performed and is negative for pertinent findings except as documented above in the HPI. Review of systems: REVIEW OF SYSTEMS GENERAL: Negative for any nausea, vomiting, fevers, chills, or weight loss. NEUROLOGIC: Negative for any blurry vision, blind spots, double vision, facial asymmetry, dysphagia, dysarthria, hemiparesis, hemisensory deficits, vertigo, ataxia. HEENT: Negative for any head trauma, neck trauma, neck stiffness, photophobia, phonophobia, sinusitis, rhinitis. CARDIAC: Negative for any chest pain, dyspnea on exertion, paroxysmal nocturnal dyspnea, peripheral edema. PULMONARY: Negative for any shortness of breath, wheezing, COPD, or TB exposure. GASTROINTESTINAL: Negative for any abdominal pain, nausea, vomiting, bright red blood per rectum, melena. GENITOURINARY: Negative for any dysuria, hematuria, positive for frequency, incontinence. INTEGUMENTARY: Negative for any rashes, abrasions or ecchymosis HEMATOLOGIC: Negative for any abnormal bruising, frequent infections or bleeding MUSCULOSKELETAL: Positive for left lower extremity tenderness in decreased range of motion, unable to bear weight - Genitourinary Genitourinary: as per HPI - Musculoskeletal Musculoskeletal ROS IM: as per HPI - Constitutional Vitals: Temp Pulse Resp BP Pulse Ox 98.8 F 85 18 142/67 98 10/20/17 13:14 10/20/17 13:14 10/20/17 15:28 10/20/17 15:28 10/20/17 13:14 General appearance: Present: A&O X 2 Exam: . - Head Head exam: Present: atraumatic, normocephalic - Eye Eye exam: Present: PERRL, conjuntiva pink, sclera anicteric - Neck Neck exam general surgery: Present: supple, trachea midline. Absent: lymphadenopathy - Respiratory Respiratory exam: Present: CTAB. Absent: accessory muscle use, rales, rhonchi, wheezes - Cardiovascular Cardiovascular exam: Present: RRR, +S1, +S2. Absent: diastolic murmur, gallop, rubs, systolic murmur - GI/Abdominal GI/Abdominal exam: Present: normal bowel sounds, soft, no peritoneal signs. Absent: distended, tenderness - Extremities Exam Extremities exam: Present: normal capillary refill, radial pulses palpable and symmetrical. Absent: joint swelling - Expanded Lower Extremities Exam Lower Leg exam: Present: tenderness. Absent: erythema, full ROM, normal inspection, swelling - Skin Skin exam: Present: dry, intact Internal Med - H&P Results - Labs CBC & Chem 7: 10/20/17 13:31 10/20/17 13:31 - EKG Data -: EKG Interpreted by Myself EKG shows normal: sinus rhythm Rate: normal - EKG Data Prior EKG available for review: yes Interpretation IM: normal EKG - Impressions Impressions Head CT 10/20/17 13:14 IMPRESSION: 1. Cerebral atrophy and chronic small vessel ischemic changes in the white matter. 2. No acute intracranial hemorrhage or infarct. D/ / Bowen Lazo MD / Bowen Lazo MD Interpreting Provider: Bowen Lazo MD Femur X-Ray 10/20/17 13:17 IMPRESSION: Acute nondisplaced intertrochanteric traumatic fracture of the left proximal femur. D/ / 10/20/2017 14:10:37 Ayesha Dobbins MD / susan Interpreting Provider: Ayesha Dobbins MD Pelvis X-Ray 10/20/17 13:17 IMPRESSION: Acute traumatic impacted intertrochanteric left proximal femur fracture. D/ / Elvis Funk / Elvis Funk Interpreting Provider: Elvis Funk - Assessment and plan (1) Intertrochanteric fracture of left hip Current Visit: Yes Status: Acute Assessment and plan: s/p mechanical fall neuroimaging without acute process femur and pelvic XR- acute nondisplaced intertrochanteric traumatic fracture of the left proximal femur unable to bear weight, dimnished strength and pain with ROM no obvious circulatory compromise to [facility] orthopedic surgeon to see in consultation; thank you plan for surgery prior h/o subdural hemotoma with repair at [facility] Denies any prior h/o [place], prior stenting, CHF, Arrhythmias, valvular disease, CVA , bleeding/clotting disorders, pulmonary or renal disease. No active chest pain. She is not on betablockers or ACEI, ARB, but is taking a statin EKG without any ST-T wave changes concerning for ischemia, NSR TTE 02/08/17- EF 60-65%, normal LV size and function, mild LVH, mild, LV DD, atypical septal motion consistent with BBB, normal RV structure and function, no PHTN, no PFO NPO heparin SC BID pain management bedrest SS for d/c planning hx of major surgery RCRI-hx of cerebrovascular disease, 0.9% risk of major cardiac event; low- intermediate risk for an intermediate risk surgery. Qualifiers: Encounter type: initial encounter Fracture type: closed Fracture alignment: nondisplaced Qualified Code(s): S72.145A - Nondisplaced intertrochanteric fracture of left femur, initial encounter for closed fracture (2) Frequent falls Current Visit: Yes Status: Acute Assessment and plan: frequent falls 2/2 frailty skilled nursing resident return [facility] to assist with D/C planning bedrest s/p fall with lt hip fracture pt/ot per ortho (3) UTI (urinary tract infection) Current Visit: Yes Status: Acute Assessment and plan: ua turbid and positive for moderate leukocyte esterase, and pyuria non toxic appearing, without fevers or leukocytosis c/o frequency and increased incontinence rocephin and ivf daily labs Qualifiers: Qualified Code(s): N39.0 - Urinary tract infection, site not specified; R31.9 - Hematuria, unspecified (4) TIA (transient ischemic attack) Current Visit: No Status: Acute Assessment and plan: per hx no focal neuro deficits not on platelet therapy at this time Qualifiers: Transient cerebral ischemia type: unspecified Qualified Code(s): G45.9 - Transient cerebral ischemic attack, unspecified (5) DVT prophylaxis Current Visit: No Status: Acute Assessment and plan: sc heparin defer to orthor for post op dvt prophylaxis (6) HLD (hyperlipidemia) Current Visit: Yes Status: Acute Assessment and plan: resume low-dose statin Qualifiers: Hyperlipidemia type: unspecified Qualified Code(s): E78.5 - Hyperlipidemia , unspecified (7) HTN (hypertension) Current Visit: Yes Status: Acute Assessment and plan: per hx not on anti-htn meds htn on admission hydralazine 10mg Q6H PRN Qualifiers: Hypertension type: essential hypertension Qualified Code(s): I10 - Essential (primary) hypertension - Time Spent With Patient Total time spent is greater than 50% in coordination of care (as documented) at patient's floor/unit and/or counseling patient: less than 15 minutes
[2017-10-20] MEDS: (Ezetimibe [Ezetimibe] 10 MG) PO SCH (20:13)
[2017-10-20] MEDS: Mirtazapine 15 MG TABLET PO SCH (20:13)
[2017-10-20] MEDS: *HR* HYDROcodone/Acet 5/325 mg TABLET PO PRN (20:13)
[2017-10-20] MEDS: Lactobacillus 1 EACH CAP.SPRINK PO SCH (20:13)
[2017-10-20] MEDS: 0.9 % Sodium Chloride 1,000 ML IVC SCH (20:15)
[2017-10-21 02:18] LABS: Basophils % 0.3 %; Eosinophils # 0.1 K/mcL (0.0-0.6); Eosinophils % 0.9 %; Hematocrit 28.2 % (35.3-44.9); Immature Granulocytes % 0.4 % (0-4); Lymphocytes # 1.1 K/mcL (0.6-4.6); Lymphocytes % 15.4 %; Mean Corpuscular HGB Conc 32.3 g/dL (31.6-35.5); Mean Corpuscular Hemoglobin 33.8 pg (28.0-33.3); Mean Corpuscular Volume 104.8 fL (83.0-100.0); Monocytes # 0.6 K/mcL (0.0-1.3); Monocytes % 9.2 %; Neutrophils # 5.1 K/mcL (1.6-8.9); Platelet Count 110 K/mcL (140-400); Red Blood Count 2.69 M/mcL (3.82-4.97); Red Cell Distribution Width 14.5 % (11.5-14.5); Segmented Neutrophils % 73.8 %
[2017-10-21 02:33] LABS: Alanine Aminotransferase 10 Units/L (7-52); Albumin 2.6 g/dL (3.5-5.7); Albumin/Globulin Ratio 1.2 (1.1-2.2); Alkaline Phosphatase 45 Units/L (34-104); Aspartate Amino Transferase 14 Units/L (13-39); BUN/Creatinine Ratio 20 (6-26); Bilirubin,Total 0.2 mg/dL (0.3-1.0); Blood Urea Nitrogen 17 mg/dL (8-23); Calcium 8.3 mg/dL (8.6-10.3); Carbon Dioxide 26 mEq/L (23-29); Chloride 110 mEq/L (98-107); Globulin 2.1 g/dL (2.4-3.5); Glucose 147 mg/dL (70-105); Osmolality,Calculated 292 (280-300); Potassium 4.2 mEq/L (3.5-5.1); Sodium 139 mEq/L (136-145); Total Protein 4.7 g/dL (6.4-8.9); eGFR For Non-African Americans > 60 (> 60)
[2017-10-21 02:49] LABS: Hemoglobin 9.1 g/dL (11.5-15.4)
[2017-10-21] MEDS: 0.9 % Sodium Chloride 1,000 ML IVC SCH (05:14)
--- NOTE | 2017-10-21 06:47 | Orthopedics Progress Note ---
Date of Encounter: 10/21/17 Time of Encounter: 06:46 Subjective Interval history: Patient seen this morning resting comfortably left hip fracture plan for open reduction intramedullary nail fixation left hip. Patient received 1 unit of blood hemoglobin 9.1. Left lower extremity neurovascular intact decreased range of motion secondary to pain. X-rays reviewed show a left intertrochanteric hip fracture. Recommendation is for open reduction intramedullary nail fixation, plan reviewed by the PA with the family, Objective Vital signs: Vital Signs Temp Pulse Resp BP Pulse Ox 10/21/17 05:30 98.8 F 80 16 139/74 92 10/20/17 23:37 98.9 F 76 14 127/70 95 10/20/17 19:54 99.1 F 84 16 136/66 93 10/20/17 17:21 99 F 87 18 171/76 93 10/20/17 15:28 18 142/67 Intake and Output 10/20/17 10/20/17 10/21/17 15:59 23:59 07:59 Intake Total 1000 / 1010 1000 / 1000 Output Total 800 / 800 400 / 400 Balance 1000 / 1010 -800 / -800 600 / 600 Intake: IV Fluids 1000 / 1000 1000 / 1000 0.9 % Sodium Chloride 1,000 ML 1000 / 1000 1000 / 1000 @ 100 mls/hr IVC .Q10H MARY ANNE Rx#: [id number] Output: Catheter 800 / 800 400 / 400 - Labs CBC & BMP: 10/21/17 01:11 10/21/17 01:11 Labs: Abnormal lab results RBC 2.69 M/mcL (3.82-4.97) L 10/21/17 01:11 Hgb 9.1 g/dL (11.5-15.4) L D 10/21/17 01:11 Hct 28.2 % (35.3-44.9) L 10/21/17 01:11 MCV 104.8 fL (83.0-100.0) H 10/21/17 01:11 MCH 33.8 pg (28.0-33.3) H 10/21/17 01:11 Plt Count 110 K/mcL (140-400) L 10/21/17 01:11 PT 12.7 Seconds (9.4-12.1) H 10/20/17 13:31 Chloride 110 mEq/L (98-107) H 10/21/17 01:11 Glucose 147 mg/dL (70-105) H 10/21/17 01:11 Calcium 8.3 mg/dL (8.6-10.3) L 10/21/17 01:11 Total Bilirubin 0.2 mg/dL (0.3-1.0) L 10/21/17 01:11 Serum Total Protein 4.7 g/dL (6.4-8.9) L 10/21/17 01:11 Albumin 2.6 g/dL (3.5-5.7) L 10/21/17 01:11 Globulin 2.1 g/dL (2.4-3.5) L 10/21/17 01:11 Urine Clarity Turbid (Clear) A 10/20/17 13:25 Urine Protein 30 mg/dL (Neg-Trace) H 10/20/17 13:25 Ur Leukocyte Esterase Moderate (Negative) H 10/20/17 13:25 Urine Microscopic WBC 50-100 per hpf (0-3) H 10/20/17 13:25 Urine Bacteria Many per hpf (None-Few) H 10/20/17 13:25 Ur Culture Indicated? YES (NO) A 10/20/17 13:25 - VTE Documentation of Mechanical Device: Intermittent pneumatic compression device Consult Discharge Plan - Plan Referrals: Digna Garcia MD [Primary Care Provider] -
[2017-10-21] MEDS ORDERED: Furosemide 20 MG/2 ML VIAL IVP ONE ×2 (07:01→13:49)
[2017-10-21] MEDS: Lactobacillus 1 EACH CAP.SPRINK PO SCH ×2 (08:48→20:11)
[2017-10-21] MEDS: *HR* HYDROcodone/Acet 5/325 mg TABLET PO PRN ×2 (08:48→20:11)
[2017-10-21] MEDS: cefTRIAXone 1,000 MG in Water for inj. (sterile) 20 ML 10 ML IVP SCH (08:49)
[2017-10-21] MEDS: Cholecalciferol (D-3) 1,000 UNIT TABLET PO SCH (08:49)
--- NOTE | 2017-10-21 14:19 | Pain Management Consultation ---
Date of Encounter: 10/21/17 Assessment and Plan (1) TIA (transient ischemic attack) Current Visit: No Status: Acute The assessment and plan as outlined above was discussed with the patient and/or family members who expressed understanding and agreement. All questions were answered. Qualifiers: Transient cerebral ischemia type: unspecified Qualified Code(s): G45.9 - Transient cerebral ischemic attack, unspecified (2) DVT prophylaxis Current Visit: No Status: Acute The assessment and plan as outlined above was discussed with the patient and/or family members who expressed understanding and agreement. All questions were answered. (3) Frequent falls Current Visit: Yes Status: Acute The assessment and plan as outlined above was discussed with the patient and/or family members who expressed understanding and agreement. All questions were answered. (4) Intertrochanteric fracture of left hip Current Visit: Yes Status: Acute The assessment and plan as outlined above was discussed with the patient and/or family members who expressed understanding and agreement. All questions were answered. Qualifiers: Encounter type: initial encounter Fracture type: closed Fracture alignment: nondisplaced Qualified Code(s): S72.145A - Nondisplaced intertrochanteric fracture of left femur, initial encounter for closed fracture (5) UTI (urinary tract infection) Current Visit: Yes Status: Acute The assessment and plan as outlined above was discussed with the patient and/or family members who expressed understanding and agreement. All questions were answered. Qualifiers: Qualified Code(s): N39.0 - Urinary tract infection, site not specified; R31.9 - Hematuria, unspecified (6) HLD (hyperlipidemia) Current Visit: Yes Status: Acute The assessment and plan as outlined above was discussed with the patient and/or family members who expressed understanding and agreement. All questions were answered. Qualifiers: Hyperlipidemia type: unspecified Qualified Code(s): E78.5 - Hyperlipidemia , unspecified (7) HTN (hypertension) Current Visit: Yes Status: Acute The assessment and plan as outlined above was discussed with the patient and/or family members who expressed understanding and agreement. All questions were answered. Qualifiers: Hypertension type: essential hypertension Qualified Code(s): I10 - Essential (primary) hypertension History of Present Illness HPI: Ms. Schilling is a 82 year old female Past Med Surg Social Fam HX - Past Medical History Medical history: arthritis, hyperlipidemia, hypertension, osteoporosis, TIA, other Additional medical history: SUBDURAL HEMATOMA Psychiatric history: anxiety, depression - Past Surgical History Surgical History: cholecystectomy, other (gregory holes placed to evacuate subdural hematomas - done at [facility] 3 weeks ago) Additional surgical history: brain surgery - Social History Smoking Status: Never smoker Smokeless Tobacco Status: No Alcohol use: none Drug use: none - Family History Mother Hx Family Neurologic Disorders: No Brother Living Status: Hx Family Cardiac Disorders: Yes Hx Family Neurologic Disorders: Yes (Stroke at age 60) Medications and Allergies Cholecalciferol (Vitamin D3) [Vitamin D] 50,000 unit PO Q14D 10/20/17 [History] Ezetimibe [Ezetimibe] 10 mg PO 199910/20/17 [History] L. Acidophilus/Pectin, [place] [Acidophilus Probiotic Capsule] 1 cap PO 799, 199910/20/17 [History] Mirtazapine 7.5 mg PO 199910/20/17 [History] Pantoprazole Sodium [Protonix] [place] 79910/20/17 [History] Potassium Chloride [K-Tab ER] 20 meq PO 799,199910/20/17 [History] Simvastatin [Zocor] 20 mg PO 199910/20/17 [History] 3 Allergy/AdvReac Type Severity Reaction Status Date / Time tetanus and diphtheria Allergy Hives Verified 10/20/17 14:51 toxoids [Tetanus&Diphtheria Toxoid] Physical Exam Initial Vital Signs Temp Pulse Resp BP Pulse Ox 98.8 F 85 18 152/70 98 10/20/17 13:14 10/20/17 13:14 10/20/17 13:14 10/20/17 13:14 10/20/17 13:14 Results - Labs 10/21/17 01:11 10/21/17 01:11 Abnormal lab results RBC 2.69 M/mcL (3.82-4.97) L 10/21/17 01:11 Hgb 9.1 g/dL (11.5-15.4) L D 10/21/17 01:11 Hct 28.2 % (35.3-44.9) L 10/21/17 01:11 MCV 104.8 fL (83.0-100.0) H 10/21/17 01:11 MCH 33.8 pg (28.0-33.3) H 10/21/17 01:11 Plt Count 110 K/mcL (140-400) L 10/21/17 01:11 PT 12.7 Seconds (9.4-12.1) H 10/20/17 13:31 Chloride 110 mEq/L (98-107) H 10/21/17 01:11 Glucose 147 mg/dL (70-105) H 10/21/17 01:11 Calcium 8.3 mg/dL (8.6-10.3) L 10/21/17 01:11 Total Bilirubin 0.2 mg/dL (0.3-1.0) L 10/21/17 01:11 Serum Total Protein 4.7 g/dL (6.4-8.9) L 10/21/17 01:11 Albumin 2.6 g/dL (3.5-5.7) L 10/21/17 01:11 Globulin 2.1 g/dL (2.4-3.5) L 10/21/17 01:11 Urine Clarity Turbid (Clear) A 10/20/17 13:25 Urine Protein 30 mg/dL (Neg-Trace) H 10/20/17 13:25 Ur Leukocyte Esterase Moderate (Negative) H 10/20/17 13:25 Urine Microscopic WBC 50-100 per hpf (0-3) H 10/20/17 13:25 Urine Bacteria Many per hpf (None-Few) H 10/20/17 13:25 Ur Culture Indicated? YES (NO) A 10/20/17 13:25 Diabetes panel 10/21/17 Range/Units 01:11 Sodium 139 (136-145) mEq/L Potassium 4.2 (3.5-5.1) mEq/L Chloride 110 H (98-107) mEq/L Carbon Dioxide 26 (23-29) mEq/L BUN 17 (8-23) mg/dL Creatinine 0.87 (0.60-1.20) mg/dL Glucose 147 H (70-105) mg/dL Calcium 8.3 L (8.6-10.3) mg/dL AST 14 (13-39) Units/L ALT 10 (7-52) Units/L Alkaline Phosphatase 45 (34-104) Units/L Albumin 2.6 L (3.5-5.7) g/dL Calcium panel 10/21/17 Range/Units 01:11 Calcium 8.3 L (8.6-10.3) mg/dL Albumin 2.6 L (3.5-5.7) g/dL Pituitary panel 10/21/17 Range/Units 01:11 Sodium 139 (136-145) mEq/L Potassium 4.2 (3.5-5.1) mEq/L Chloride 110 H (98-107) mEq/L Carbon Dioxide 26 (23-29) mEq/L BUN 17 (8-23) mg/dL Creatinine 0.87 (0.60-1.20) mg/dL Glucose 147 H (70-105) mg/dL Calcium 8.3 L (8.6-10.3) mg/dL Adrenal panel 10/21/17 Range/Units 01:11 Sodium 139 (136-145) mEq/L Potassium 4.2 (3.5-5.1) mEq/L Chloride 110 H (98-107) mEq/L Carbon Dioxide 26 (23-29) mEq/L BUN 17 (8-23) mg/dL Creatinine 0.87 (0.60-1.20) mg/dL Glucose 147 H (70-105) mg/dL Calcium 8.3 L (8.6-10.3) mg/dL Total Bilirubin 0.2 L (0.3-1.0) mg/dL AST 14 (13-39) Units/L ALT 10 (7-52) Units/L Alkaline Phosphatase 45 (34-104) Units/L Albumin 2.6 L (3.5-5.7) g/dL All other labs normal. - VTE Documentation of Mechanical Device: Intermittent pneumatic compression device Consult Discharge Plan - Plan Referrals: Digna Garcia MD [Primary Care Provider] -
[2017-10-21] MEDS: 0.9 % Sodium Chloride 250 ML IVC SCH (15:00)
[2017-10-21] MEDS: *HR* Heparin 5,000 UNIT/ML VIAL SQ SCH ×2 (16:30→18:40)
--- NOTE | 2017-10-21 18:14 | Internal Med Progress Note ---
Hospitalist Progress Note - Encounter Date of Encounter: 10/21/17 Time of Encounter: 11:15 - Subjective Interval History: Pt was seen and assessed at bedside at 1115. Patient is alert, awake, oriented , pleasant. She denies pain as long she is still. He denies need for change in medication. Asked plan of care with primary RN at bedside. Patient was receiving 1 unit of packed red blood cells for hemoglobin of 9.1 per orthopedic surgeon. Patient has no obvious signs of bleeding, and denies any hematochezia , tu hematuria or hematemesis. - Exam Vitals: Temp Pulse Resp BP Pulse Ox 98.5 F 79 20 145/76 96 10/21/17 15:49 10/21/17 15:49 10/21/17 15:49 10/21/17 15:49 10/21/17 15:49 Exam: General: Pt resting quietly on bed, no distress. Skin: pwd, no rashes, lesions, redness Neurological: Pt is alert and awake, oriented x 3, Speech is clear, PERRLA, EOMI , no nystagmus, no pronator drift. strength equal x 4 extremities HEENT: mucous mumbranes moist, no conjuctival pallor Neck: supple, no tracheal deviation, no lymphadenopathy, tenderness, no thyromegaly Heart: S1S2 heard without gallops, clicks, murmurs, no bradycardia or tachycardia, pt has no peripheral edema, pedal and radial pulses palpable bilaterally. Lungs: clear throughout without wheezing, rales, or ronchi, respirations are unlabored Abdomen: soft and non tender with bowel sound present, no hepatomegaly. Psych: Normal affect with good eye contact - Assessment and Plan (1) TIA (transient ischemic attack) Current Visit: No Status: Acute Assessment and Plan: Per patient history. She has no deficits. Patient is not on antiplatelet therapy. (2) DVT prophylaxis Current Visit: Yes Status: Acute Assessment and Plan: Heparin subcutaneous. defer to orthor for post op dvt prophylaxis (3) Frequent falls Current Visit: Yes Status: Acute Assessment and Plan: Per family, patient has frequent falls at detention. Patient reports that she was not to be up without assistance, states that she went to the bathroom without asking for assistance, precipitating this fall. She will return to [facility], social secretary has been consulted for discharge planning. Continue to monitor for safety and falls. PT/OT. (4) Intertrochanteric fracture of left hip Current Visit: Yes Status: Acute Assessment and Plan: s/p mechanical fall at [facility]. femur and pelvic XR- acute nondisplaced intertrochanteric traumatic fracture of the left proximal femur unable to bear weight, dimnished strength and pain with ROM Adequate pain control with current medications. no obvious circulatory compromise to [facility] following, surgery tomorrow a.m. NPO after midnight. heparin SC BID pain management bedrest SS for d/c planning (5) UTI (urinary tract infection) Current Visit: Yes Status: Acute Assessment and Plan: ua turbid and positive for moderate leukocyte esterase, and pyuria Pt denies urinary symptoms today c/o frequency and increased incontinence prior to admission. Continue IV Rocephin daily Urine culture GNR, will continue Rocephin until final culture and sensitivity are available, will narrow antibiotic as appropriate. (6) HLD (hyperlipidemia) Current Visit: Yes Status: Acute Assessment and Plan: Chronic. Continue home medications. (7) HTN (hypertension) Current Visit: Yes Status: Acute Assessment and Plan: Well controlled in hospital hydralazine 10mg Q6H PRN - Time Spent with Patient Total time spent is greater than 50% in coordination of care (as documented) at patient's floor/unit and/or counseling patient: less than 15 minutes Plan of Care Discussed with: patient Internal Medicine: Result - Labs CBC & Chem 7: 10/21/17 01:11 10/21/17 01:11 Labs: Short CBC 10/21/17 Range/Units 01:11 WBC 6.9 (4.3-11.1) K/mcL Hgb 9.1 L D (11.5-15.4) g/dL Hct 28.2 L (35.3-44.9) % Plt Count 110 L (140-400) K/mcL Neutrophils # 5.1 (1.6-8.9) K/mcL BMP 10/21/17 01:11 Sodium 139 Potassium 4.2 Chloride 110 H Carbon Dioxide 26 BUN 17 Creatinine 0.87 Glucose 147 H Calcium 8.3 L Liver Function 10/21/17 Range/Units 01:11 Total Bilirubin 0.2 L (0.3-1.0) mg/dL AST 14 (13-39) Units/L ALT 10 (7-52) Units/L Alkaline Phosphatase 45 (34-104) Units/L Albumin 2.6 L (3.5-5.7) g/dL - ABG Interpretation ABG results: PT/INR, D-dimer PT 12.7 Seconds (9.4-12.1) H 10/20/17 13:31 - Impressions Impressions Chest X-Ray 10/20/17 17:05 IMPRESSION: Left basilar atelectasis and features of remote granulomatous disease. Otherwise unremarkable exam. D/ / Wes Stringer / Wes Stringer Interpreting Provider: Wes Stringer - VTE Documentation of Mechanical Device: Intermittent pneumatic compression device Consult Discharge Plan - Plan Referrals: Digna Garcia MD [Primary Care Provider] - (1) TIA (transient ischemic attack) Qualifiers: Transient cerebral ischemia type: unspecified Qualified Code(s): G45.9 - Transient cerebral ischemic attack, unspecified (4) Intertrochanteric fracture of left hip Qualifiers: Encounter type: initial encounter Fracture type: closed Fracture alignment: nondisplaced Qualified Code(s): S72.145A - Nondisplaced intertrochanteric fracture of left femur, initial encounter for closed fracture (5) UTI (urinary tract infection) Qualifiers: Qualified Code(s): N39.0 - Urinary tract infection, site not specified; R31.9 - Hematuria, unspecified (6) HLD (hyperlipidemia) Qualifiers: Hyperlipidemia type: unspecified Qualified Code(s): E78.5 - Hyperlipidemia, unspecified (7) HTN (hypertension) Qualifiers: Hypertension type: essential hypertension Qualified Code(s): I10 - Essential (primary) hypertension
[2017-10-21 18:56] LABS: Hematocrit 36.1 % (35.3-44.9)
[2017-10-21 18:59] LABS: Hemoglobin 11.6 g/dL (11.5-15.4)
[2017-10-21] MEDS: Mirtazapine 15 MG TABLET PO SCH (20:11)
[2017-10-21] MEDS: (Ezetimibe [Ezetimibe] 10 MG) PO SCH (20:15)
--- NOTE | 2017-10-21 20:31 | Anesthesia Evaluation PreOp ---
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 Acidophilus/Pectin, [place] [Acidophilus Probiotic Capsule] 1 cap PO 799, 199910/20/17 [History] Mirtazapine 7.5 mg PO 199910/20/17 [History] Pantoprazole Sodium [Protonix] 40 mg PO 0800 10/20/17 [History] Potassium Chloride [K-Tab ER] 20 meq PO 799,199910/20/17 [History] Simvastatin [Zocor] 20 mg PO 199910/20/17 [History] 3 Allergy/AdvReac Type Severity Reaction Status Date / Time tetanus and diphtheria Allergy Hives Verified 10/20/17 14:51 toxoids [Tetanus&Diphtheria Toxoid] - Meds/Allergy Pre-op Review Medications Reviewed: Yes Allergies Reviewed: Yes Beta Blockers on Current Med List: No Anesthesia Results - Labs 10/21/17 18:27 10/21/17 01:11 Laboratory Tests 05/01/17 10/20/17 10/21/17 23:01 13:31 01:11 Hgb Hct Plt Count 110 L PT 12.7 H INR 1.1 APTT 27.6 Sodium Potassium BUN Creatinine 10/21/17 10/21/17 01:11 18:27 Hgb 11.6 D Hct 36.1 Plt Count PT INR APTT Sodium 139 Potassium 4.2 BUN 17 Creatinine 0.87 - Imaging EKG: report reviewed (SR Left BBB) Additional studies: ECHO EF 55%, no PFO, no pulm htn Anesthesia Exam Vital Signs/O2 Sat/Glucose, Most Current Temp Pulse Resp BP Pulse Ox 10/21/17 19:39 98.8 F 92 16 146/77 93 Height: 5'4 Weight: 140 lbs NPO (# of Hours): MN Pain Scale: 0 - HEENT Pupil (Motor): Pupils equal, EOMI Mallampati: III Teeth: Normal Oral Opening: Less than or equal to 3 - TRANSFER TABLE OPERATOR LOC: Oriented TRANSFER TABLE OPERATOR Motor: Normal RUE, Normal LUE, Normal RLE, Normal LLE, Normal Face TRANSFER TABLE OPERATOR Sensory: Normal: RUE, LUE, RLE, LLE, Face - Cardiac Rhythm: Regular Murmur: None JVD: No Carotid Bruit: No - Pulmonary Breath Sounds: bilateral Clear Respiratory Effort: Symmetrical Anesthesia Assess/Plan ASA Score: 3 (HTN TIA) Modified [place] Scale for Level of Consciousness: Cooperative, oriented, and tranquil Anesthetic Plan: General Monitoring Plan: Standard Monitors Recovery Plan: PACU (Discussed GA, agrees to proceed)
[2017-10-22 02:21] LABS: Basophils % 0.4 %; Eosinophils # 0.2 K/mcL (0.0-0.6); Hematocrit 32.7 % (35.3-44.9); Hemoglobin 10.6 g/dL (11.5-15.4); Immature Granulocytes % 0.4 % (0-4); Lymphocytes # 1.7 K/mcL (0.6-4.6); Lymphocytes % 21.5 %; Mean Corpuscular HGB Conc 32.4 g/dL (31.6-35.5); Mean Corpuscular Hemoglobin 32.9 pg (28.0-33.3); Mean Corpuscular Volume 101.6 fL (83.0-100.0); Mean Platelet Volume 10.3 fL (9.4-12.4); Monocytes # 0.8 K/mcL (0.0-1.3); Monocytes % 10.1 %; Neutrophils # 5.2 K/mcL (1.6-8.9); Platelet Count 122 K/mcL (140-400); Red Blood Count 3.22 M/mcL (3.82-4.97); Segmented Neutrophils % 64.6 %
[2017-10-22 02:39] LABS: BUN/Creatinine Ratio 22 (6-26); Blood Urea Nitrogen 18 mg/dL (8-23); Calcium 8.4 mg/dL (8.6-10.3); Carbon Dioxide 25 mEq/L (23-29); Chloride 107 mEq/L (98-107); Glucose 91 mg/dL (70-105); Osmolality,Calculated 291 (280-300); Potassium 3.6 mEq/L (3.5-5.1); Sodium 140 mEq/L (136-145); eGFR For Non-African Americans > 60 (> 60)
[2017-10-22] MEDS: *HR* HYDROcodone/Acet 5/325 mg TABLET PO PRN ×2 (04:52→11:53)
[2017-10-22] MEDS: *HR* Heparin 5,000 UNIT/ML VIAL SQ SCH ×2 (04:53→18:25)
[2017-10-22] MEDS: cefTRIAXone 1,000 MG in Water for inj. (sterile) 20 ML 10 ML IVP SCH (08:38)
[2017-10-22] MEDS: Lactobacillus 1 EACH CAP.SPRINK PO SCH ×2 (08:39→20:09)
[2017-10-22] MEDS: Cholecalciferol (D-3) 1,000 UNIT TABLET PO SCH (08:39)
--- NOTE | 2017-10-22 09:16 | Orthopedics Progress Note ---
Date of Encounter: 10/22/17 Time of Encounter: 09:15 Subjective Interval history: Patient seen this morning plan for left hip open reduction intramedullary nail fixation. We reviewed the risks and benefits as well as recovery. All questions were answered. The patient agreed to this treatment plan and appeared to understand the plan is reviewed. Objective Vital signs: Vital Signs Temp Pulse Resp BP Pulse Ox 10/22/17 08:49 96 10/22/17 07:21 98.2 F 84 16 123/68 96 10/22/17 00:33 98.4 F 96 16 146/75 94 10/21/17 19:39 98.8 F 92 16 146/77 93 10/21/17 15:49 98.5 F 79 20 145/76 96 10/21/17 13:07 98.3 F 77 16 113/53 96 10/21/17 11:59 99.1 F 75 20 108/63 94 10/21/17 10:41 97.9 F 75 16 101/56 10/21/17 10:26 98.9 F 81 18 98/57 95 Intake and Output 10/21/17 10/22/17 10/22/17 23:59 07:59 15:59 Output Total 1700 / 1700 675 / 675 Balance -1700 / -1700 -675 / -675 Output: Catheter 1700 / 1700 675 / 675 - Labs CBC & BMP: 10/22/17 01:08 10/22/17 01:08 Labs: Abnormal lab results RBC 3.22 M/mcL (3.82-4.97) L 10/22/17 01:08 Hgb 10.6 g/dL (11.5-15.4) L 10/22/17 01:08 Hct 32.7 % (35.3-44.9) L 10/22/17 01:08 MCV 101.6 fL (83.0-100.0) H 10/22/17 01:08 RDW 16.0 % (11.5-14.5) H 10/22/17 01:08 Plt Count 122 K/mcL (140-400) L 10/22/17 01:08 PT 12.7 Seconds (9.4-12.1) H 10/20/17 13:31 Calcium 8.4 mg/dL (8.6-10.3) L 10/22/17 01:08 Total Bilirubin 0.2 mg/dL (0.3-1.0) L 10/21/17 01:11 Serum Total Protein 4.7 g/dL (6.4-8.9) L 10/21/17 01:11 Albumin 2.6 g/dL (3.5-5.7) L 10/21/17 01:11 Globulin 2.1 g/dL (2.4-3.5) L 10/21/17 01:11 Urine Clarity Turbid (Clear) A 10/20/17 13:25 Urine Protein 30 mg/dL (Neg-Trace) H 10/20/17 13:25 Ur Leukocyte Esterase Moderate (Negative) H 10/20/17 13:25 Urine Microscopic WBC 50-100 per hpf (0-3) H 10/20/17 13:25 Urine Bacteria Many per hpf (None-Few) H 10/20/17 13:25 Ur Culture Indicated? YES (NO) A 10/20/17 13:25 - VTE Documentation of Mechanical Device: Intermittent pneumatic compression device Consult Discharge Plan - Plan Referrals: Digna Garcia MD [Primary Care Provider] -
[2017-10-22] MEDS: 0.9 % Sodium Chloride 1,000 ML IVC SCH (12:25)
[2017-10-22] MEDS ORDERED: *HR* FentaNYL (PF) 100 MCG/2 ML VIAL ONE (13:18)
[2017-10-22] MEDS ORDERED: Ondansetron 4 MG/2 ML VIAL ONE (13:18)
[2017-10-22] MEDS ORDERED: *HR* Propofol 200 MG/20 ML VIAL IVP ONE (13:18)
[2017-10-22] MEDS ORDERED: Lidocaine -MPF 2% 2 ML VIAL ONE (13:18)
[2017-10-22] MEDS ORDERED: Dexamethasone 4 MG/ML VIAL ONE (13:18)
[2017-10-22] MEDS ORDERED: *HR* Morphine 2 MG/ML SYRINGE IVP PRN (13:25)
[2017-10-22] MEDS ORDERED: *HR* Labetalol 20 MG/4 ML SYRINGE IVP PRN (13:25)
[2017-10-22] MEDS ORDERED: Acetaminophen IV 1,000 MG/100 ML INFUS..BTL ONE (13:29)
[2017-10-22] MEDS ORDERED: CeFAZolin Syr 2,000MG/20 ML 2,000 MG/20 ML SYRINGE IVPB ONE (13:39)
[2017-10-22] MEDS ORDERED: *HR* PHENYLEPHRINE 1,000 MCG/10 ML SYRINGE IVP ONE (13:54)
--- NOTE | 2017-10-22 14:26 | Orthopedic Operative Note ---
Date of procedure: 10/22/17 Pre-op diagnosis: displaced left intertrochanteric hip fracture Post-op diagnosis: same Procedure: Procedure: Left hip open reduction intramedullary nail fixation Estimated blood loss: 100 cc Hardware: Metal: Synthes 10 x 130 degrees TFN, 115 mm helical blade, 36 mm distal locking bolt Operative procedure: The patient was brought to the operating room and placed on the operating room table. After general anesthesia was administered the well leg was place in the well leg rodriguez and the operative leg was placed in the fracture leg rodriguez. All pressure points were padded appropriately. The operative extremity was prepped and draped in the sterile surgical fashion patient received IV antibiotic prior to skin incision. A standard direct lateral approach was made over the entry point of the greater trochanter, the incision was made through the skin and subcutaneous tissue hemostasis was obtained with Bovie cautery. Using careful sharp dissection the fascia was identified and incised, flouroscopic assistance was used to identify the entry point. The guidepin was placed at the entry point using fluroscopic assistance, it was over reamed with the proximal reamer. The 10 x 130 degree nail was placed through the entry hole, across the fracture site into the distal fragment the position was confirmed with fluroscopy. A guide pin was placed through the proximal locking guide from the lateral femur through the nail across the fracture site into the femoral head, it was over reamed with the reamer. The 115 mm helical blade was placed over the guide pin through the nail into the femoral head, locked in place with the proximal locking bolt. Distal locking bolt was placed through the 36 mm distal locking guide. position of hardware and fracture reduction found to be acceptable with fluroscopic assistance. The wound was irrigated. Fascia was closed with a running #2 PDS suture. The deep tissue was irrigated and closed deep with #1 PDS suture superficially with 0 PDS suture and skin was closed with skin ching. The patient was placed in a sterile dressing The patient was extubated and transferred to the recovery room in stable condition. Anesthesia: GETA Surgeon: Nilson Quiroga Was there an speech language pathology assistant present: No Estimated blood loss (cc): 100 Condition: stable Disposition: PACU
--- NOTE | 2017-10-22 15:03 | Anesthesia Evaluation Post Op ---
Date of Encounter: 10/22/17 Time of Encounter: 15:02 - Vital Signs Vital Signs: Vital Signs/O2 Sat/Glucose, Most Recent Temp Pulse Resp BP Pulse Ox 97.6 F 82 14 161/84 96 10/22/17 14:33 10/22/17 14:53 10/22/17 14:53 10/22/17 14:53 10/22/17 14:53 - Lungs Lungs: Clear Ascult./Percussion - Airway Airway: Non-obstructed - Cardiovascular Regular Rate - Mental Status Mental Status: Alert & Oriented, Answers Appropriately - Pain Pain Scale used: Mary (Faces) - Nausea Vomiting Nausea Vomiting: Not Present - Hydration Hydration: Tolerates oral liquids - Discharge PostOp Status: Transfer Patient to floor
[2017-10-22 15:18] LABS: Hematocrit 31.5 % (35.3-44.9); Hemoglobin 10.5 g/dL (11.5-15.4)
--- NOTE | 2017-10-22 15:47 | Internal Med Progress Note ---
Hospitalist Progress Note - Encounter Date of Encounter: 10/22/17 Time of Encounter: 12:25 - Subjective Interval History: Pt was seen and assessed at bedside at 1225. Patient is alert, awake, oriented , pleasant. She denies pain as long she is still. Pt again states that she does not require a change in medication and pain is 4/10 if she is still. - Exam Vitals: Temp Pulse Resp BP Pulse Ox 97.8 F 76 16 157/76 96 10/22/17 15:03 10/22/17 15:03 10/22/17 15:03 10/22/17 15:03 10/22/17 15:03 Exam: General: Pt resting quietly on bed, no distress. Skin: pwd, no rashes, lesions, redness Neurological: Pt is alert and awake, oriented x 3, Speech is clear, PERRLA, EOMI , no nystagmus, no pronator drift. strength equal x 4 extremities HEENT: mucous mumbranes moist, no conjuctival pallor Neck: supple, no tracheal deviation, no lymphadenopathy, tenderness, no thyromegaly Heart: S1S2 heard without gallops, clicks, murmurs, no bradycardia or tachycardia, pt has no peripheral edema, pedal and radial pulses palpable bilaterally. Lungs: clear throughout without wheezing, rales, or ronchi, respirations are unlabored Abdomen: soft and non tender with bowel sound present, no hepatomegaly. Psych: Normal affect with good eye contact Extremities: Pt with obvious external rotation and shortening of left leg without vascular compromise. - Assessment and Plan (1) TIA (transient ischemic attack) Current Visit: No Status: Acute Assessment and Plan: Per patient history. She has no deficits. Patient is not on antiplatelet therapy. (2) DVT prophylaxis Current Visit: Yes Status: Acute Assessment and Plan: Heparin subcutaneous. defer to orthor for post op dvt prophylaxis Encourage pt to chair BID post op (3) Frequent falls Current Visit: Yes Status: Acute Assessment and Plan: Per family, patient has frequent falls at shelter. Patient reports that she was not to be up without assistance, states that she went to the bathroom without asking for assistance, precipitating this fall. She will return to [facility], criminal justice social worker has been consulted for discharge planning. Continue to monitor for safety and falls. PT/OT. (4) Intertrochanteric fracture of left hip Current Visit: Yes Status: Acute Assessment and Plan: s/p mechanical fall at [facility]. femur and pelvic XR- acute nondisplaced intertrochanteric traumatic fracture of the left proximal femur unable to bear weight, dimnished strength and pain with ROM Adequate pain control with current medications. no obvious circulatory compromise to LLE Surgery today heparin SC BID pain management bedrest SS for d/c planning (5) UTI (urinary tract infection) Current Visit: Yes Status: Acute Assessment and Plan: ESBL and enterococcus species. Enterococcus not resulted yet, waiting on sensitivity Pt denies urinary symptoms today c/o frequency and increased incontinence prior to admission. Ertapenem 1 gram IV daily Will add 2nd agent prn when second organism is identified. (6) HLD (hyperlipidemia) Current Visit: Yes Status: Acute Assessment and Plan: Chronic. Continue home medications. (7) HTN (hypertension) Current Visit: Yes Status: Acute Assessment and Plan: Well controlled in hospital hydralazine 10mg Q6H PRN - Time Spent with Patient Total time spent is greater than 50% in coordination of care (as documented) at patient's floor/unit and/or counseling patient: less than 15 minutes Plan of Care Discussed with: patient Internal Medicine: Result - Labs CBC & Chem 7: 10/22/17 15:03 10/22/17 01:08 Labs: Short CBC 10/21/17 10/22/17 10/22/17 Range/Units 18:27 01:08 15:03 WBC 8.0 (4.3-11.1) K/mcL Hgb 11.6 D 10.6 L 10.5 L (11.5-15.4) g/dL Hct 36.1 32.7 L 31.5 L (35.3-44.9) % Plt Count 122 L (140-400) K/mcL Neutrophils # 5.2 (1.6-8.9) K/mcL BMP 10/22/17 01:08 Sodium 140 Potassium 3.6 Chloride 107 Carbon Dioxide 25 BUN 18 Creatinine 0.81 Glucose 91 Calcium 8.4 L - ABG Interpretation ABG results: PT/INR, D-dimer PT 12.7 Seconds (9.4-12.1) H 10/20/17 13:31 - Impressions Impressions Hip X-Ray 10/22/17 13:14 IMPRESSION: Internally fixated intertrochanteric fracture in good alignment. D/ / Elvis Funk / Elvis Funk Interpreting Provider: Elvis Funk Fluoroscopy 10/22/17 13:54 IMPRESSION: Intraprocedural fluoroscopic spot images as above. See separate procedure report for more information. D/ / Elvis Funk / Elvis Funk Interpreting Provider: Elvis Funk - VTE Documentation of Mechanical Device: Intermittent pneumatic compression device Consult Discharge Plan - Plan Referrals: Digna Garcia MD [Primary Care Provider] - (1) TIA (transient ischemic attack) Qualifiers: Transient cerebral ischemia type: unspecified Qualified Code(s): G45.9 - Transient cerebral ischemic attack, unspecified (4) Intertrochanteric fracture of left hip Qualifiers: Encounter type: initial encounter Fracture type: closed Fracture alignment: nondisplaced Qualified Code(s): S72.145A - Nondisplaced intertrochanteric fracture of left femur, initial encounter for closed fracture (5) UTI (urinary tract infection) Qualifiers: Qualified Code(s): N39.0 - Urinary tract infection, site not specified; R31.9 - Hematuria, unspecified (6) HLD (hyperlipidemia) Qualifiers: Hyperlipidemia type: unspecified Qualified Code(s): E78.5 - Hyperlipidemia, unspecified (7) HTN (hypertension) Qualifiers: Hypertension type: essential hypertension Qualified Code(s): I10 - Essential (primary) hypertension
[2017-10-22] MEDS ORDERED: Ondansetron 4 MG/2 ML VIAL IVP PRN (15:58)
[2017-10-22] MEDS ORDERED: Naloxone 0.4 MG/ML INJ IVP PRN ×2 (15:58)
[2017-10-22] MEDS ORDERED: Ibuprofen 400 MG TABLET PO PRN (15:58)
[2017-10-22] MEDS ORDERED: Ertapenem 1,000 MG in 0.9 % Sodium Chloride Mini Bag 100 ML IVPB SCH (16:00)
--- NOTE | 2017-10-22 17:58 | Electrocardiograph Report ---
[address] [address] Test Date: 2017-10-20 Pat Name: Melissa Schilling Department: EXAM4 Room: [facility] Gender: F Displayer: : 1935 Requested By: Denny Dalton Order Number: [id number] Reading MD: Royal Jordan Measurements Intervals [place] Rate: 87 P: 45 WV: 177 QRS: -21 QRSD: 129 T: 69 QT: 439 QTc: 529 Interpretive Statements Sinus rhythm Left bundle branch block Electronically Signed On 10-22-2017 17:56:44 EDT by Royal Jordan
[2017-10-22] MEDS: Mirtazapine 15 MG TABLET PO SCH (20:09)
[2017-10-22] MEDS: *HR* OxyCODONE Immed Rel 5 MG TABLET PO PRN (23:01)
[2017-10-23] MEDS: ceFAZolin 2,000 MG in 0.9 % Sodium Chloride 100 ML IVPB SCH ×2 (00:15→08:00)
[2017-10-23] MEDS: *HR* Heparin 5,000 UNIT/ML VIAL SQ SCH ×2 (06:20→17:19)
[2017-10-23] MEDS: cefTRIAXone 1,000 MG in Water for inj. (sterile) 20 ML 10 ML IVP SCH (07:59)
[2017-10-23] MEDS: Lactobacillus 1 EACH CAP.SPRINK PO SCH ×2 (08:00→20:17)
[2017-10-23] MEDS: Cholecalciferol (D-3) 1,000 UNIT TABLET PO SCH (08:00)
--- NOTE | 2017-10-23 08:05 | Orthopedics Progress Note ---
Date of Encounter: 10/23/17 Time of Encounter: 08:05 Subjective Interval history: Patient was seen this morning doing well without complaints. Afebrile vital signs stable. Operative extremity: Neurovascularly intact Dressing clean dry and intact Calves nontender Assessment and plan: Continue with postoperative care Stable for discharge Objective Vital signs: Vital Signs Temp Pulse Resp BP Pulse Ox 10/23/17 07:19 98.0 F 76 16 113/60 94 10/23/17 04:15 97.7 F 69 12 109/69 96 10/23/17 00:05 97.6 F 72 12 124/66 94 10/22/17 19:00 97.6 F 90 16 128/76 97 10/22/17 18:18 98.4 F 93 16 129/76 94 10/22/17 16:46 98.3 F 86 16 120/67 93 10/22/17 16:00 97.6 F 78 16 139/80 93 10/22/17 15:31 98.1 F 76 16 144/86 95 10/22/17 15:03 97.8 F 76 16 157/76 96 10/22/17 14:53 82 14 161/84 96 10/22/17 14:43 78 14 149/75 93 10/22/17 14:33 97.6 F 80 16 157/80 96 10/22/17 08:49 96 Intake and Output 10/22/17 10/23/17 10/23/17 23:59 07:59 15:59 Intake Total 100 / 100 Output Total 400 / 400 Balance -300 / -300 Intake: IV Fluids 100 / 100 Ancef 2,000 MG In 0.9 % Sodium 100 / 100 Chloride 100 ML @ 200 mls/hr IVPB Q8HR [facility] Rx#:[id number] Output: Catheter 400 / 400 - Labs CBC & BMP: 10/22/17 15:03 10/22/17 01:08 Labs: Abnormal lab results RBC 3.22 M/mcL (3.82-4.97) L 10/22/17 01:08 Hgb 10.5 g/dL (11.5-15.4) L 10/22/17 15:03 Hct 31.5 % (35.3-44.9) L 10/22/17 15:03 MCV 101.6 fL (83.0-100.0) H 10/22/17 01:08 RDW 16.0 % (11.5-14.5) H 10/22/17 01:08 Plt Count 122 K/mcL (140-400) L 10/22/17 01:08 PT 12.7 Seconds (9.4-12.1) H 10/20/17 13:31 Calcium 8.4 mg/dL (8.6-10.3) L 10/22/17 01:08 Total Bilirubin 0.2 mg/dL (0.3-1.0) L 10/21/17 01:11 Serum Total Protein 4.7 g/dL (6.4-8.9) L 10/21/17 01:11 Albumin 2.6 g/dL (3.5-5.7) L 10/21/17 01:11 Globulin 2.1 g/dL (2.4-3.5) L 10/21/17 01:11 Urine Clarity Turbid (Clear) A 10/20/17 13:25 Urine Protein 30 mg/dL (Neg-Trace) H 10/20/17 13:25 Ur Leukocyte Esterase Moderate (Negative) H 10/20/17 13:25 Urine Microscopic WBC 50-100 per hpf (0-3) H 10/20/17 13:25 Urine Bacteria Many per hpf (None-Few) H 10/20/17 13:25 Ur Culture Indicated? YES (NO) A 10/20/17 13:25 - VTE Documentation of Mechanical Device: Venous foot pump, device Consult Discharge Plan - Plan Referrals: Digna Garcia MD [Primary Care Provider] -
[2017-10-23] MEDS: 0.9 % Sodium Chloride 1,000 ML IVC SCH ×3 (11:10→13:59)
[2017-10-23] MEDS: 0.9 % Sodium Chloride 250 ML IVC SCH ×2 (11:11→11:12)
[2017-10-23] MEDS: *HR* HYDROcodone/Acet 5/325 mg TABLET PO PRN (11:24)
[2017-10-23 11:55] LABS: Basophils % 0.1 %; Eosinophils % 0.2 %; Hematocrit 31.3 % (35.3-44.9); Immature Granulocytes % 0.5 % (0-4); Lymphocytes # 1.4 K/mcL (0.6-4.6); Lymphocytes % 10.7 %; Mean Corpuscular HGB Conc 31.9 g/dL (31.6-35.5); Mean Corpuscular Hemoglobin 33.3 pg (28.0-33.3); Mean Corpuscular Volume 104.3 fL (83.0-100.0); Mean Platelet Volume 9.9 fL (9.4-12.4); Monocytes # 1.1 K/mcL (0.0-1.3); Monocytes % 8.2 %; Neutrophils # 10.6 K/mcL (1.6-8.9); Platelet Count 145 K/mcL (140-400); Red Cell Distribution Width 15.4 % (11.5-14.5); Segmented Neutrophils % 80.3 %
[2017-10-23 12:21] LABS: BUN/Creatinine Ratio 22 (6-26); Blood Urea Nitrogen 20 mg/dL (8-23); Calcium 8.7 mg/dL (8.6-10.3); Carbon Dioxide 23 mEq/L (23-29); Chloride 109 mEq/L (98-107); Glucose 156 mg/dL (70-105); Osmolality,Calculated 294 (280-300); Potassium 4.4 mEq/L (3.5-5.1); Sodium 139 mEq/L (136-145); eGFR For Non-African Americans 58 (> 60)
[2017-10-23] MEDS: *HR* OxyCODONE Immed Rel 5 MG TABLET PO PRN ×2 (14:11→20:16)
--- NOTE | 2017-10-23 16:35 | Internal Med Progress Note ---
Hospitalist Progress Note - Encounter Date of Encounter: 10/23/17 Time of Encounter: 11:45 - Subjective Interval History: Pt was seen and assessed at bedside at 1145. Patient is alert, awake but drowsy , oriented, pleasant. She denies pain as long she is still and states that pain is improved since surgery. Pt again states that she does not require a change in medication. - Exam Vitals: Temp Pulse Resp BP Pulse Ox 97.3 F L 84 19 136/62 94 10/23/17 15:38 10/23/17 15:38 10/23/17 15:38 10/23/17 15:38 10/23/17 15:38 Exam: General: Pt resting quietly on bed, no distress. Skin: pwd, no rashes, lesions, redness Neurological: Pt is alert and awake, oriented x 3, Speech is clear, PERRLA, EOMI , no nystagmus, no pronator drift. strength equal x 4 extremities HEENT: mucous mumbranes moist, no conjuctival pallor Neck: supple, no tracheal deviation, no lymphadenopathy, tenderness, no thyromegaly Heart: S1S2 heard without gallops, clicks, murmurs, no bradycardia or tachycardia, pt has no peripheral edema, pedal and radial pulses palpable bilaterally. Lungs: clear throughout without wheezing, rales, or ronchi, respirations are unlabored Abdomen: soft and non tender with bowel sound present, no hepatomegaly. Psych: Normal affect with good eye contact Extremities: Pt with obvious external rotation and shortening of left leg without vascular compromise. Intact vertical surgical incision to left lateral hip. - Assessment and Plan (1) TIA (transient ischemic attack) Current Visit: No Status: Acute Assessment and Plan: Per patient history. She has no deficits. Patient is not on antiplatelet therapy. (2) DVT prophylaxis Current Visit: Yes Status: Acute Assessment and Plan: Heparin subcutaneous. defer to ortho for post op dvt prophylaxis Encourage pt to chair BID post op (3) Frequent falls Current Visit: Yes Status: Acute Assessment and Plan: Per family, patient has frequent falls at skilled nursing. Patient reports that she was not to be up without assistance, states that she went to the bathroom without asking for assistance, precipitating this fall. She will return to [facility], ready for discharge when she is stable. Continue to monitor for safety and falls. PT/OT while inpt. (4) Intertrochanteric fracture of left hip Current Visit: Yes Status: Acute Assessment and Plan: s/p mechanical fall at [facility]. femur and pelvic XR- acute nondisplaced intertrochanteric traumatic fracture of the left proximal femur POD1- neurovasularly intact, no bleeding or drainage from incision. Adequate pain control with current medications. pain management bedrest PT/OT (5) UTI (urinary tract infection) Current Visit: Yes Status: Acute Assessment and Plan: ESBL and enterococcus species. Discussed with pharmacy, Augmentin 500mg po BID x 3-5 days Pt denies urinary symptoms today (6) HLD (hyperlipidemia) Current Visit: Yes Status: Chronic Assessment and Plan: Chronic. Continue home medications. (7) HTN (hypertension) Current Visit: Yes Status: Chronic Assessment and Plan: Well controlled in hospital, pt does not take antihypertensives at home. hydralazine 10mg Q6H PRN (8) Leukocytosis Current Visit: Yes Status: Acute Assessment and Plan: Pt with mild leukocytosis today, likely reactive s/p left hip surgery. Pt also being treated for UTI, antibiotics changed to po Augmentin today. Pt has no fever, chills, tachycardia, tachypnea. Continue to monitor labs and vitals, pt could discharge in the morning if she is stable - Time Spent with Patient Total time spent is greater than 50% in coordination of care (as documented) at patient's floor/unit and/or counseling patient: less than 15 minutes Plan of Care Discussed with: patient Internal Medicine: Result - Labs CBC & Chem 7: 10/23/17 11:30 10/23/17 11:30 Labs: Short CBC 10/23/17 Range/Units 11:30 WBC 13.2 H D (4.3-11.1) K/mcL Hgb 10.0 L (11.5-15.4) g/dL Hct 31.3 L (35.3-44.9) % Plt Count 145 (140-400) K/mcL Neutrophils # 10.6 H (1.6-8.9) K/mcL BMP 10/23/17 11:30 Sodium 139 Potassium 4.4 Chloride 109 H Carbon Dioxide 23 BUN 20 Creatinine 0.92 Glucose 156 H Calcium 8.7 - ABG Interpretation ABG results: PT/INR, D-dimer PT 12.7 Seconds (9.4-12.1) H 10/20/17 13:31 - VTE Documentation of Mechanical Device: Venous foot pump, device Consult Discharge Plan - Plan Referrals: Digna Garcia MD [Primary Care Provider] - (1) TIA (transient ischemic attack) Qualifiers: Transient cerebral ischemia type: unspecified Qualified Code(s): G45.9 - Transient cerebral ischemic attack, unspecified (4) Intertrochanteric fracture of left hip Qualifiers: Encounter type: initial encounter Fracture type: closed Fracture alignment: nondisplaced Qualified Code(s): S72.145A - Nondisplaced intertrochanteric fracture of left femur, initial encounter for closed fracture (5) UTI (urinary tract infection) Qualifiers: Qualified Code(s): N39.0 - Urinary tract infection, site not specified; R31.9 - Hematuria, unspecified (6) HLD (hyperlipidemia) Qualifiers: Hyperlipidemia type: unspecified Qualified Code(s): E78.5 - Hyperlipidemia, unspecified (7) HTN (hypertension) Qualifiers: Hypertension type: essential hypertension Qualified Code(s): I10 - Essential (primary) hypertension (8) Leukocytosis Qualifiers: Leukocytosis type: unspecified Qualified Code(s): D72.829 - Elevated white blood cell count, unspecified
[2017-10-23] MEDS: Amoxicillin/Clavulanate 500 MG TABLET PO SCH (17:19)
[2017-10-23] MEDS: Mirtazapine 15 MG TABLET PO SCH (20:17)
[2017-10-24 01:44] LABS: Basophils % 0.2 %; Eosinophils # 0.2 K/mcL (0.0-0.6); Eosinophils % 2.3 %; Hematocrit 27.3 % (35.3-44.9); Hemoglobin 8.9 g/dL (11.5-15.4); Immature Granulocytes % 0.2 % (0-4); Lymphocytes # 1.8 K/mcL (0.6-4.6); Lymphocytes % 19.3 %; Mean Corpuscular HGB Conc 32.6 g/dL (31.6-35.5); Mean Corpuscular Hemoglobin 33.7 pg (28.0-33.3); Mean Corpuscular Volume 103.4 fL (83.0-100.0); Mean Platelet Volume 9.9 fL (9.4-12.4); Monocytes # 0.8 K/mcL (0.0-1.3); Monocytes % 8.1 %; Neutrophils # 6.5 K/mcL (1.6-8.9); Platelet Count 119 K/mcL (140-400); Red Blood Count 2.64 M/mcL (3.82-4.97); Red Cell Distribution Width 15.2 % (11.5-14.5); Segmented Neutrophils % 69.9 %
[2017-10-24 01:58] LABS: BUN/Creatinine Ratio 24 (6-26); Blood Urea Nitrogen 21 mg/dL (8-23); Calcium 8.4 mg/dL (8.6-10.3); Carbon Dioxide 25 mEq/L (23-29); Chloride 110 mEq/L (98-107); Glucose 112 mg/dL (70-105); Osmolality,Calculated 290 (280-300); Potassium 5.1 mEq/L (3.5-5.1); Sodium 138 mEq/L (136-145); eGFR For Non-African Americans > 60 (> 60)
[2017-10-24] MEDS: *HR* Heparin 5,000 UNIT/ML VIAL SQ SCH (05:30)
--- NOTE | 2017-10-24 06:56 | Orthopedics Progress Note ---
Date of Encounter: 10/24/17 Time of Encounter: 06:56 Subjective Interval history: Patient was seen this morning doing well without complaints. Afebrile vital signs stable. Operative extremity: Neurovascularly intact Dressing clean dry and intact Calves nontender Assessment and plan: Continue with postoperative care Stable for discharge Objective Vital signs: Vital Signs Temp Pulse Resp BP Pulse Ox 10/24/17 06:44 99.1 F 69 18 101/60 95 10/24/17 00:45 98.3 F 82 14 132/71 92 10/23/17 20:10 97 10/23/17 19:58 97.6 F 82 16 145/76 97 10/23/17 15:38 97.3 F L 84 19 136/62 94 10/23/17 11:27 98.2 F 82 20 151/82 95 10/23/17 08:37 94 10/23/17 07:19 98.0 F 76 16 113/60 94 Intake and Output 10/23/17 10/23/17 10/24/17 15:59 23:59 07:59 Other: Meal Dinner Percent of Meal Consumed 10% # Urine Diapers 1 1 - Labs CBC & BMP: 10/24/17 01:12 10/24/17 01:12 Labs: Abnormal lab results RBC 2.64 M/mcL (3.82-4.97) L 10/24/17 01:12 Hgb 8.9 g/dL (11.5-15.4) L 10/24/17 01:12 Hct 27.3 % (35.3-44.9) L 10/24/17 01:12 MCV 103.4 fL (83.0-100.0) H 10/24/17 01:12 MCH 33.7 pg (28.0-33.3) H 10/24/17 01:12 RDW 15.2 % (11.5-14.5) H 10/24/17 01:12 Plt Count 119 K/mcL (140-400) L 10/24/17 01:12 PT 12.7 Seconds (9.4-12.1) H 10/20/17 13:31 Chloride 110 mEq/L (98-107) H 10/24/17 01:12 Glucose 112 mg/dL (70-105) H 10/24/17 01:12 Calcium 8.4 mg/dL (8.6-10.3) L 10/24/17 01:12 Total Bilirubin 0.2 mg/dL (0.3-1.0) L 10/21/17 01:11 Serum Total Protein 4.7 g/dL (6.4-8.9) L 10/21/17 01:11 Albumin 2.6 g/dL (3.5-5.7) L 10/21/17 01:11 Globulin 2.1 g/dL (2.4-3.5) L 10/21/17 01:11 Urine Clarity Turbid (Clear) A 10/20/17 13:25 Urine Protein 30 mg/dL (Neg-Trace) H 10/20/17 13:25 Ur Leukocyte Esterase Moderate (Negative) H 10/20/17 13:25 Urine Microscopic WBC 50-100 per hpf (0-3) H 10/20/17 13:25 Urine Bacteria Many per hpf (None-Few) H 10/20/17 13:25 Ur Culture Indicated? YES (NO) A 10/20/17 13:25 - VTE Documentation of Mechanical Device: Intermittent pneumatic compression device Consult Discharge Plan - Plan Referrals: Digna Garcia MD [Primary Care Provider] -
--- NOTE | 2017-10-24 07:37 | Discharge Summary ---
Date of Encounter: 10/24/17 Time of Encounter: 08:00 - Discharge Diagnosis (1) TIA (transient ischemic attack) Priority: Secondary Status: Acute Assessment and Plan: Per patient history. She has no deficits,neruologically intact. Patient is not on antiplatelet therapy. Qualifiers: Transient cerebral ischemia type: unspecified Qualified Code(s): G45.9 - Transient cerebral ischemic attack, unspecified (2) DVT prophylaxis Priority: Secondary Status: Acute Assessment and Plan: Heparin subcutaneous while hospitalized. Encourage pt to chair BID and PT post op (3) Frequent falls Priority: Secondary Status: Acute Assessment and Plan: Per family, patient has frequent falls at [facility]. Patient reports that she was not to be up without assistance, states that she went to the bathroom without asking for assistance, precipitating this fall. She will return to [facility], ready for discharge today. Held overnight for leukocytosis. Continue to monitor for safety and falls. PT at [facility] (4) Intertrochanteric fracture of left hip Priority: Primary Status: Acute Assessment and Plan: s/p mechanical fall at [facility]. femur and pelvic XR- acute nondisplaced intertrochanteric traumatic fracture of the left proximal femur POD2- neurovasularly intact, no bleeding or drainage from incision. Stable for discharge. Adequate pain control with current medications. Qualifiers: Encounter type: initial encounter Fracture type: closed Fracture alignment: nondisplaced Qualified Code(s): S72.145A - Nondisplaced intertrochanteric fracture of left femur, initial encounter for closed fracture (5) UTI (urinary tract infection) Priority: Secondary Status: Acute Assessment and Plan: ESBL and enterococcus species. Discussed with pharmacy, Augmentin 500mg po BID x 3-5 days Pt denies urinary symptoms. No leukocytosis, fever, chills, flank pain. Qualifiers: Urinary tract infection type: site unspecified Hematuria presence: with hematuria Qualified Code(s): N39.0 - Urinary tract infection, site not specified; R31.9 - Hematuria, unspecified (6) HLD (hyperlipidemia) Priority: Secondary Status: Chronic Assessment and Plan: Chronic. Continue home medications. Qualifiers: Hyperlipidemia type: unspecified Qualified Code(s): E78.5 - Hyperlipidemia , unspecified (7) HTN (hypertension) Priority: Secondary Status: Chronic Assessment and Plan: Well controlled in hospital, pt does not take antihypertensives at home. Qualifiers: Hypertension type: essential hypertension Qualified Code(s): I10 - Essential (primary) hypertension (8) Leukocytosis Priority: Secondary Status: Acute Assessment and Plan: Pt with mild leukocytosis today, likely reactive s/p left hip surgery. Pt also being treated for UTI, antibiotics changed to po Augmentin today. Pt has no fever, chills, tachycardia, tachypnea. 10/24- Leukocytosis resolved. Pt stable for discharge. No fever, vitals stable. Qualifiers: Leukocytosis type: unspecified Qualified Code(s): D72.829 - Elevated white blood cell count, unspecified Hospital course: Please see assessment and plan for hospital course. Discharge discussed with: patient Time spent discussing smoking cessation with patient: 3 to 10 minutes - Time Spent with Patient Total time spent providing and/or coordinating discharge services: Less than 30 minutes - Discharge Medications Prescriptions: HYDROcodone/Acet 5/325 mg [[place] 5-325 mg] 1 tab PO Q6HR PRN 2 Days #8 tablet PRN Reason: Moderate Pain Amoxicillin/Clavulanate [Augmentin] 500 mg PO BIDWM #8 tablet Home Medications: Cholecalciferol (Vitamin D3) [Vitamin D3] 50,000 unit PO Q14D 10/20/17 [History] Ezetimibe 10 mg PO 199910/20/17 [History] L. Acidophilus/Pectin, [place] [Acidophilus Probiotic Capsule] 1 cap PO 799, 199910/20/17 [History] Mirtazapine 7.5 mg PO 199910/20/17 [History] Pantoprazole Sodium [Protonix] [place] [address]/20/17 [History] Potassium Chloride [K-Tab ER] 20 meq PO 799,199910/20/17 [History] Simvastatin [Zocor] 20 mg PO 199910/20/17 [History] Amoxicillin/Clavulanate [Augmentin] 500 mg PO BIDWM #8 tablet 10/24/17 [Rx] HYDROcodone/Acet 5/325 mg [[place] 5-325 mg] 1 tab PO Q6HR PRN 2 Days #8 tablet [Rx] Allergies/Adverse Reactions: 3 Allergy/AdvReac Type Severity Reaction Status Date / Time tetanus and diphtheria Allergy Hives Verified 10/20/17 14:51 toxoids [Tetanus&Diphtheria Toxoid] Date of admission: 10/20/17 14:51 Primary care physician: Digna Garcia Consults: 10/20/17 16:08 Consult to Partner Management Consultant [CONS] Routine Reason for SW Consult: discharge planning 10/20/17 16:33 Consult to Nutrition [CONS] Routine Comment: Consulting Provider: NUTRITION Reason for Dietary Consult: MST Score Consult to Pastoral Services [CONS] Routine Comment: 10/22/17 15:58 Consult to Occupational Therapy [CONS] Routine Comment: Evaluate, develop and implement POC Reason for Consult: post hip surgery Does patient have active BEDREST order?: No Is patient medically & hemodynamically stable?: Yes Patient assessed for mobility or mobilized this visit?: Yes Consult to Orthopedic Navigator [CONS] [CONS] Routine Consult to Physical Therapy [CONS] Routine Comment: Evaluate, develop and implement POC Reason for Consult: post hip surgery Does patient have active BEDREST order?: No Is patient medically & hemodynamically stable?: Yes Patient assessed for mobility or mobilized this visit?: Yes Consult to Partner Management Consultant [CONS] Routine Reason for SW Consult: post -op hip fracture RT Post Op Consult [CONS] Routine Discharging clinician: Josephine Justice Anticipated date of discharge: 10/24/17 - Constitutional Vitals: Temp Pulse Resp BP Pulse Ox 99.1 F 69 18 101/60 95 10/24/17 06:44 10/24/17 06:44 10/24/17 06:44 10/24/17 06:44 10/24/17 06:44 General appearance: Present: A&O X 2 Exam: as above - Head Head exam: Present: atraumatic, normocephalic - Eye Eye exam: Present: PERRL, conjuntiva pink, sclera anicteric Pupils: Present: PERRL - Neck Neck exam general surgery: Present: supple, trachea midline. Absent: lymphadenopathy - Respiratory Respiratory exam: Present: CTAB. Absent: accessory muscle use, rales, rhonchi, wheezes - Cardiovascular Cardiovascular exam: Present: RRR, +S1, +S2. Absent: diastolic murmur, gallop, rubs, systolic murmur - GI/Abdominal GI/Abdominal exam: Present: normal bowel sounds, soft. Absent: distended, hepatomegaly, tenderness - Extremities Exam Extremities exam: Present: warm, radial pulses palpable and symmetrical. Absent : calf tenderness, cyanotic, pedal edema - Neurological Exam Neurological exam: Present: CN II-XII intact, oriented X3, no focal deficits. Absent: pronater drift, facial droop, speech deficit - Skin Skin exam: Present: dry, intact - Patient Status Disposition: Transfer SNF Functional capacity at discharge: uses cane/walker Overall status at discharge: patient is progressing back to baseline - Discharge Instructions Follow Up With: Digna Garcia MD [Primary Care Provider] - - Diet and Activity Activity: as per physical therapy Diet: advance to your usual diet - VTE Documentation of Mechanical Device: Intermittent pneumatic compression device
--- NOTE | 2017-10-24 07:48 | Physician Discharge Referral ---
ExtendedCare Referral Info Provider in Charge after Transfer: PCP Institutional Level of Care: Skilled - Diagnosis (1) TIA (transient ischemic attack) Priority: Secondary Status: Acute (2) DVT prophylaxis Priority: Secondary Status: Acute (3) Frequent falls Priority: Secondary Status: Acute (4) Intertrochanteric fracture of left hip Priority: Primary Status: Acute (5) UTI (urinary tract infection) Priority: Secondary Status: Acute (6) HLD (hyperlipidemia) Priority: Secondary Status: Chronic (7) HTN (hypertension) Priority: Secondary Status: Chronic (8) Leukocytosis Priority: Secondary Status: Acute Prognosis: Good Aware of Diagnosis: Patient - Transfer Medications Prescriptions: HYDROcodone/Acet 5/325 mg [[place] 5-325 mg] 1 tab PO Q6HR PRN 2 Days #8 tablet PRN Reason: Moderate Pain Amoxicillin/Clavulanate [Augmentin] 500 mg PO BIDWM #8 tablet Home Medications: Cholecalciferol (Vitamin D3) [Vitamin D3] 50,000 unit PO Q14D 10/20/17 [History] Ezetimibe 10 mg PO 199910/20/17 [History] L. Acidophilus/Pectin, [place] [Acidophilus Probiotic Capsule] 1 cap PO 0800, 199910/20/17 [History] Mirtazapine 7.5 mg PO 199910/20/17 [History] Pantoprazole Sodium [Protonix] 40 mg PO 0800 10/20/17 [History] Potassium Chloride [K-Tab ER] 20 meq PO 0800,199910/20/17 [History] Simvastatin [Zocor] 20 mg PO 199910/20/17 [History] Amoxicillin/Clavulanate [Augmentin] 500 mg PO BIDWM #8 tablet 10/24/17 [Rx] HYDROcodone/Acet 5/325 mg [[place] 5-325 mg] 1 tab PO Q6HR PRN 2 Days #8 tablet [Rx] Allergies/Adverse Reactions: 3 Allergy/AdvReac Type Severity Reaction Status Date / Time tetanus and diphtheria Allergy Hives Verified 10/20/17 14:51 toxoids [Tetanus&Diphtheria Toxoid] - Respiratory Orders Smoking Cessation: Smoking cessation has been advised. For more information, call the [place] Tobacco Quit Line at 2-347-RBUK-NOW. - Lab Orders Lab Orders: 2 Step Mantoux Test per State regulation, CBC, U/A, Donnie 17, CXR yearly - Ancillary Orders May use pressure relief devices daily prn, May go on OSCAR w/family/respon republican w /meds at nurse discretion PRN, May consult with Dentist, Cheese Tester, Student Counsellor PRN - Advance Directives Code Status: Full Code - History and Physical History/Physical reviewed & approved w/add comments: Yes - Mobility Orders Ambulate - Rehabiliation Orders Rehab Potential: Good Rehab Orders: ROM Exercises, Evaluation for Physical Therapy, Evaluation for Occupational Therapy - Treatments Skin tear care topically daily PRN per policy, May check for fecal impaction rectally daily PRN, Fleet enema rectally every other day PRN cleansing purposes - Diet Orders Regular CERTIFICATION: I certify that the transfer of the above named patient to an Extended Care Facility is necessary for the continuing treatment of the diagnosis listed. The above information is true and accurate reflection of patient's current condition. Confidential - Redisclosure prohibited without a patient's written consent.
[2017-10-24] MEDS: *HR* HYDROcodone/Acet 5/325 mg TABLET PO PRN (08:11)
[2017-10-24] MEDS: Cholecalciferol (D-3) 1,000 UNIT TABLET PO SCH (08:12)
[2017-10-24] MEDS: Lactobacillus 1 EACH CAP.SPRINK PO SCH (08:12)
[2017-10-24] MEDS: Amoxicillin/Clavulanate 500 MG TABLET PO SCH (08:12)
[2017-10-24] MEDS: cefTRIAXone 1,000 MG in Water for inj. (sterile) 20 ML 10 ML IVP SCH ×2 (08:13→10:00)
[2017-10-24 13:08] VITALS: BP 122/67
[2017-10-24] MEDS: *HR* OxyCODONE Immed Rel 5 MG TABLET PO PRN (13:16)
== END 2017-10-24 14:38 | DRG 481 ==
LOC: EMEROOARM 13:08 → 3NENU 14:51
PROVIDERS: ADMIT Internal Medicine; ATTEND Internal Medicine